=== PATIENT | female | born 1940 | race Caucasian/White ===

== ENCOUNTER 2016-08-09 15:56 | Emergency (ER) | payer OTHER, MEDICAID ==
[~2016-08-09] VITALS: Wt 65.5 kg
[~2016-08-09 15:56] MED LIST: ADV50050 INH; ALBU8.5H3 IH; ALBU8.5H5 INH; ATEN50TA PO; FLUO20CA22 PO; LEVO88TA36 PO; PRED20TA PO
[2016-08-09] MEDS ORDERED: ALBUTEROL 0.5% (NEB) 2.5 MG/0.5 ML AMP HHN STA (19:35)
[2016-08-09] MEDS ORDERED: IPRATROPIUM (NEB) 0.5 MG/2.5 ML AMP HHN ONE (20:00)
[2016-08-09 20:02] LABS: ADD UMIC YES; URINE BILIRUBIN (Dip) NEGATIVE (NEGATIVE); URINE BLOOD (Dip) TRACE (NEGATIVE); URINE COLOR LT. YELLOW (YELLOW); URINE GLUCOSE (Dip) NEGATIVE (NEGATIVE); URINE KETONES (Dip) NEGATIVE (NEGATIVE); URINE LEUKOCYTE ESTERASE (Dip) 2+ (NEGATIVE); URINE NITRITE (Dip) NEGATIVE (NEGATIVE); URINE TOTAL PROTEIN (Dip) NEGATIVE (NEGATIVE); URINE UROBILINOGEN (Dip) 0.2 E.U./dL (0.1-1.0)
[2016-08-09 20:06] LABS: BASOPHILS % 0.5 % (0.0-2.0); EOSINOPHILS # 0.4 10^3/ul (0.0-0.5); EOSINOPHILS % 5.2 % (0.0-7.0); HEMATOCRIT 40.7 % (37.0-47.0); HEMOGLOBIN 13.5 g/dl (12.0-16.0); LYMPHOCYTES # 2.1 10^3/ul (0.8-2.9); LYMPHOCYTES % 25.8 % (15.0-51.0); MEAN CORPUSCULAR HEMOGLOBIN 29.4 pg (29.0-33.0); MEAN CORPUSCULAR HGB CONC 33.1 g/dl (32.0-37.0); MEAN CORPUSCULAR VOLUME 88.8 fl (82.0-101.0); MEAN PLATELET VOLUME 7.8 fl (7.4-10.4); MONOCYTE # 0.7 10^3/ul (0.3-0.9); MONOCYTES % 8.8 % (0.0-11.0); NEUTROPHIL # 4.8 10^3/ul (1.6-7.5); NEUTROPHILS % 59.7 % (39.0-77.0); PLATELET COUNT 325 10^3/UL (140-440); RED BLOOD COUNT 4.58 10^6/ul (4.20-5.40); RED CELL DISTRIBUTION WIDTH 13.1 % (11.5-14.5)
[2016-08-09 20:07] LABS: CONDITION 1
[2016-08-09 20:11] LABS: INR 0.91; PROTIME 12.3 Sec (12.2-14.2)
[2016-08-09 20:12] LABS: PARTIAL THROMBOPLASTIN TIME 26.8 Sec (25.0-35.0)
[2016-08-09 20:15] LABS: POTASSIUM 4.4 mmol/L (3.5-5.1)
[2016-08-09 20:18] LABS: CALCIUM 9.3 mg/dl (8.4-10.2); CREATININE 0.89 mg/dl (0.44-1.00)
--- NOTE | 2016-08-09 20:19 | ERD ---
ER Documentation Chief Complaint Date/Time DATE: 08/09/16 TIME: 20:18 Chief Complaint COUGH, BACK PAIN, SENT PER PMD FOR POSSIBLE PNA PER FAMILY, NO SOB HPI 76-year-old female with a history of COPD was referred to the emergency department by primary care doctor for cough, back pain to rule out pneumonia. Patient states that she always feels short of breath secondary to her COPD, she has a 20 year history where she smokes about half a pack a day however she quit. She complains of pain in the anterior portion of her chest that goes to her left side upper back, nonradiating, described as achy and noted when she moves or takes a deep breath in or out. She denies fevers or chills. ROS All systems reviewed and are negative except as per history of present illness. Medications Home Meds Active Scripts Levofloxacin* (Levaquin*) 750 Mg Tablet, 750 MG PO DAILY for 5 Days, TAB Prov:ALIYAH BOSS PA-C 08/09/16 Prednisone* (Prednisone*) 20 Mg Tab, 40 MG PO DAILY for 4 Days, TAB Prov:SIENA ZAMORA MD 01/19/15 Albuterol Sulfate* (Albuterol Sulfate* HFA) 8.5 Gm Hfa.aer.ad, 1-2 PUFF INH Q4 Y for SHORTNESS OF BREATH, #1 EA Prov:SIENA ZAMORA MD 01/19/15 Reported Medications Salmeterol Xinaf-Fluticasone* (Advair*) 1 Inh Inha, 14 INH INH 10/13/13 Albuterol Sulfate* (Proair HFA*) 8.5 Gm Hfa.aer.ad, 8.5 GM IH 10/13/13 Atenolol* (Atenolol*) 50 Mg Tablet, 50 MG PO DAILY 10/13/13 Fluoxetine Hcl* (Fluoxetine Hcl*) 20 Mg Capsule, 20 MG PO DAILY 10/13/13 Levothyroxine Sodium (Levothroid) 88 Mcg Tablet, 88 MCG PO DAILY 10/13/13 Allergies Allergies: Coded Allergies: Cephalexin (Verified Allergy, RASH, 08/20/13) PMhx/Soc History of Surgery: Yes (hernia repair abdomen, cholystectomy) Anesthesia Reaction: No Hx Neurological Disorder: No Hx Respiratory Disorders: Yes (asthma, copd) Hx Cardiac Disorders: Yes (htn) Hx Psychiatric Problems: Yes (ANXIETY) Hx Miscellaneous Medical Probl: Yes (hypothyroidism, right shoulder DJD, hyoerlipidemia) Hx Alcohol Use: No Hx Substance Use: No Hx Tobacco Use: Yes Smoking Status: Former smoker Physical Exam Vitals Vital Signs Date Time Temp Pulse Resp B/P Pulse Ox O2 Delivery O2 Flow Rate FiO2 08/09/16 19:57 78 20 93 21 08/09/16 16:34 97.0 77 17 125/62 98 Physical Exam General: Well-developed, well-nourished. The patient appears in no acute distress. HEENT: Head is normocephalic, atraumatic. No scleral icterus. Pupils are equal , round, and reactive. Oral mucous membranes are moist. No pharyngeal erythema. Neck: Supple. Nontender. Lungs: Clear to auscultation. Normal air movement. Heart: Regular rate and rhythm. S1 and S2 are normal. No murmurs, gallops, or rubs. Abdomen: Soft, nontender, nondistended. Bowel sounds are normoactive. Extremities: No clubbing or cyanosis. Normal pulses. Moving extremities x 4. No weakness. No pedal edema. Neurologic: Alert and oriented 3. No focal deficits. Skin: Normal turgor. No rash or lesions. Result Diagram: 08/09/16195008/09/161950 Results 24 hrs Laboratory Tests Test 08/09/16 19:50 08/09/16 19:51 08/09/16 19:57 Urine Bacteria FEW Urine Bilirubin NEGATIVE Urine Clarity SL HAZY Urine Color LT. YELLOW Urine Glucose NEGATIVE% Urine Hemoglobin TRACE Urine Ketones NEGATIVE Urine Leukocyte Esterase 2+ Urine Microscopic RBC 0-2/HPF Urine Microscopic WBC 5-10/HPF Urine Nitrite NEGATIVE Urine Specific [place] >=1.030 Urine Squamous Epithelial Cells FEW Urine Total Protein NEGATIVE Urine Urobilinogen 0.2 E.U./dL Urine pH 6.0 Activated Partial Thromboplast Time 26.8Sec Anion Gap 17 B-Type Natriuretic Peptide 309PG/ML Basophils # 0.010^3/ul Basophils % 0.5% Blood Urea Nitrogen 23mg/dl Calcium Level 9.3mg/dl Carbon Dioxide Level 28mmol/L Chloride Level 104mmol/L Creatinine 0.89mg/dl Eosinophils # 0.410^3/ul Eosinophils % 5.2% Glucose Level 101mg/dl Hematocrit 40.7% Hemoglobin 13.5g/dl INR International Normalized Ratio 0.91 Lymphocytes # 2.110^3/ul Lymphocytes % 25.8% Mean Corpuscular Hemoglobin 29.4pg Mean Corpuscular Hemoglobin Concent 33.1g/dl Mean Corpuscular Volume 88.8fl Mean Platelet Volume 7.8fl Monocytes # 0.710^3/ul Monocytes % 8.8% Neutrophils # 4.810^3/ul Neutrophils % 59.7% Nucleated Red Blood Cells # 0.010^3/ul Nucleated Red Blood Cells % 0.0/100WBC Platelet Count 87387^3/UL Potassium Level 4.4mmol/L Prothrombin Time 12.3Sec Prothrombin Time Ratio 1.0 Red Blood Count 4.5810^6/ul Red Cell Distribution Width 13.1% Sodium Level 145mmol/L Troponin I 0.012ng/ml White Blood Count 8.010^3/ul Alanine Aminotransferase (ALT/SGPT) 27IU/L Aspartate Amino Transf (AST/SGOT) 46IU/L Lipase 198U/L Current Medications Medications (Trade) Dose Ordered Sig/Key Route PRN Reason Start Time Stop Time Status Last Admin Dose Admin Albuterol (Proventil 0.5% (Neb)) 5 mg ONCE STAT HHN 08/09/16 19:35 08/09/16 19:37 DC 08/09/16 19:56 Ipratropium [place] 0.5 mg 0.5 mg ONCE ONCE HHN 08/09/16 20:00 08/09/16 20:01 DC 08/09/16 19:56 Ceftriaxone Sodium (Rocephin) 50 ml @ 100 mls/hr ONCE ONCE IVPB 08/09/16 21:00 08/09/16 21:00 DC PROCEDURE: CR, chest CLINICAL INDICATION: Chest pain. TECHNIQUE: AP chest. COMPARISON: Chest, 01/11/2015. FINDINGS: The heart is not enlarged. There is calcified atherosclerosis of the aortic arch. There is no acute infiltrate in the lungs. No pleural effusion. IMPRESSION: 1. Unremarkable chest x-ray. 2. Calcified atherosclerosis of the aortic arch. RPTAT: GG .Jian Suazo MD, MD Date Time Electronically viewed and signed by .Jian Suazo MD, MD on 08/09/2016 20:46 PROCEDURE: CT abdomen and pelvis without intravenous contrast. CLINICAL INDICATION: Pain. TECHNIQUE: CT of the abdomen/pelvis was performed utilizing axial images with reconstructions in sagittal and coronal planes. The administered radiation dose is CTDI 11.1 mGy, DLP 573 mGy-cm. COMPARISON: No pertinent prior examinations were submitted for comparison. FINDINGS: Visualized Chest: Some atelectasis or scarring is noted within the lung bases. There is mild cardiomegaly. A small hiatal hernia is noted. Abdomen: The liver, spleen, pancreas, and adrenal glands are unremarkable. Prior cholecystectomy is noted. The kidneys are without hydronephrosis. No definite urinary calculi are seen. There is a 2.8 cm cyst within the left kidney. There is a small left inguinal hernia which contains a small loop of small bowel. There is no evidence of bowel obstruction. The appendix is not definitely seen. There is no evidence of acute appendicitis. No intra- abdominal free air is seen. There is no evidence of intra-abdominal adenopathy or free fluid. Vascular calcifications are noted within the aorta and its branches. Pelvis: The uterus is not definitely seen, likely resected. The urinary bladder is unremarkable. There is no pelvic adenopathy of free fluid. Osseous structures: There is grade 1 anterolisthesis of L5 on S1 due to facet arthritic changes. IMPRESSION: No acute findings. Small left inguinal hernia containing a loop of small bowel without evidence of bowel obstruction. Small hiatal hernia. RPTAT: HIKT .Julio Bertrand MD, Date Time Electronically viewed and signed by .Julio Bertrand MD, on 08/09/2016 22:33 .T/ Procedures/[facility] EKG: Reviewed by Dr. Hatfield Rate/Rhythm: Normal Sinus Rhythm rate of 83 QRS, ST, T-waves: No changes consistent w/ acute ischemia Impression: No evidence of ischemia or arrhythmia Labs, chest x-ray and urine were obtained. MDM: 76-year-old female with history of COPD complains of cough, chest pain as well as abdominal pain. Patient's workup is consistent with acute bronchitis, no evidence of pneumonia, fluid overload, hypoxia or respiratory distress. EKG shows no ischemic changes, troponin was negative and BNP was less than 500. Additionally, she was given a breathing treatment with albuterol and Atrovent reports to be significantly better at this time. Urinalysis was also obtained that showed 5-10 white blood cells, she will be given Levaquin to cover for urinary tract infection as well as acute bronchitis. Clinically she is stable, no signs of sepsis, hypoxia, respiratory distress. Suspicion for acute coronary syndrome, pulmonary embolus, dissection are low at this time. Patient's blood pressure was elevated (>120/80) but appears stable without evidence of hypertension emergency or urgency. The patient was counseled about the risks of hypertension and urged to pursue outpatient monitoring and therapy within a week with their primary care physician. The case was reviewed and discussed with Dr. Parrish who agrees with the plan of care including labs, treatment, and advanced imaging as appropriate. Departure Diagnosis: Primary Impression: UTI (urinary tract infection) Additional Impression: Acute bronchitis Condition: Good ALIYAH BOSS PA-C Aug 09, 2016 20:19
[2016-08-09 20:29] LABS: BACTERIA,URINE FEW; SQUAMOUS EPITHELIAL CELL,UR FEW; URINE RBCS 0-2 /HPF (0)
[2016-08-09 20:30] LABS: TROPONIN-I 0.012 ng/ml (0.00-0.12)
--- NOTE | 2016-08-09 20:46 | RADRPT ---
PROCEDURE: CR, chest CLINICAL INDICATION: Chest pain. TECHNIQUE: AP chest. COMPARISON: Chest, 01/11/2015. FINDINGS: The heart is not enlarged. There is calcified atherosclerosis of the aortic arch. There is no acut e infiltrate in the lungs. No pleural effusion. IMPRESSION: 1. Unremarkable chest x-ray. 2. Calcified atherosclerosis of the aortic arch. RPTAT: GG .Jian Suazo MD, MD Date Time Electronically viewed and signed by .Jian Suazo MD, on 08/09/2016 20:46 .Y/
[2016-08-09] MEDS ORDERED: CEFTRIAXONE 1 GM/50 ML (PMX) 50 ML IVPB ONE (21:00)
[2016-08-09 21:26] LABS: ALANINE AMINOTRANSFERASE 27 IU/L (13-69); ASPARTATE AMINO TRANSFERASE 46 IU/L (15-46)
--- NOTE | 2016-08-09 22:33 | RADRPT ---
PROCEDURE: CT abdomen and pelvis without intravenous contrast. CLINICAL INDICATION: Pain. TECHNIQUE: CT of the abdomen/pelvis was performed utilizing axial images with reconstructions in s agittal and coronal planes. The administered radiation dose is CTDI 11.1 mGy, DLP 573 mGy-cm. COMPARISON: No pertinent prior examinations were submitted for comparison. FINDINGS: Visualized Chest: Some atelectasis or scarring is noted within the lung bases. There is mild cardio megaly. A small hiatal hernia is noted. Abdomen: The liver, spleen, pancreas, and adrenal glands are unremarkable. Prior cholecystectomy is noted. The kidneys are without hydronephrosis. No definite urinary calculi are seen. There is a 2.8 cm cys t within the left kidney. There is a small left inguinal hernia which contains a small loop of small bowel. There is no evide nce of bowel obstruction. The appendix is not definitely seen. There is no evidence of acute appen dicitis. No intra-abdominal free air is seen. There is no evidence of intra-abdominal adenopathy or free fluid. Vascular calcifications are noted within the aorta and its branches. Pelvis: The uterus is not definitely seen, likely resected. The urinary bladder is unremarkable. There is no pelvic adenopathy of free fluid. Osseous structures: There is grade 1 anterolisthesis of L5 on S1 due to facet arthritic changes. IMPRESSION: No acute findings. Small left inguinal hernia containing a loop of small bowel without evidence of bowel obstruction. Small hiatal hernia. RPTAT: HIKT .Julio Bertrand MD, MD Date Time Electronically viewed and signed by .Julio Bertrand MD, on 08/09/2016 22:33 .T/
[2016-08-09] MEDS ORDERED: LEVO750T25 PO (22:42)
[2016-08-09 23:24] VITALS: BP 12/70; PULSE 66; RESP 18; TEMP 98
== END 2016-08-09 23:25 | disposition home or self-care (01) ==
LOC: FTE 15:56
DX: N39.0 Urinary tract infection, site not specified (principal); J20.9 Acute bronchitis, unspecified; J44.1 Chronic obstructive pulmonary disease with (acute) exacerbation; I10 Essential (primary) hypertension; E03.9 Hypothyroidism, unspecified; R07.89 Other chest pain; Z87.891 Personal history of nicotine dependence
CPT/HCPCS: 36415; 71010; 74176; 80048; 81001; 81003; 83690; 83880; 84450; 84460; 84484; 85025; 85610; 85730; 93005; 94664

== ENCOUNTER 2016-10-21 14:59 | Emergency (ER) | payer OTHER, MEDICAID ==
[~2016-10-21] VITALS: Wt 68.0 kg
[~2016-10-21 14:59] MED LIST changes: +LEVO750T25 PO
[2016-10-21] MEDS ORDERED: morphine 2 MG INJ IV STA (19:11)
[2016-10-21 19:32] LABS: ADD SCAN DIFF NO
[2016-10-21 19:35] LABS: BASOPHIL # 0.1 10^3/ul (0.0-0.1); BASOPHILS % 0.9 % (0.0-2.0); EOSINOPHILS # 0.3 10^3/ul (0.0-0.5); EOSINOPHILS % 3.5 % (0.0-7.0); HEMATOCRIT 41.8 % (37.0-47.0); HEMOGLOBIN 13.7 g/dl (12.0-16.0); LYMPHOCYTES # 2.4 10^3/ul (0.8-2.9); LYMPHOCYTES % 30.8 % (15.0-51.0); MEAN CORPUSCULAR HEMOGLOBIN 29.9 pg (29.0-33.0); MEAN CORPUSCULAR HGB CONC 32.8 g/dl (32.0-37.0); MEAN CORPUSCULAR VOLUME 91.3 fl (82.0-101.0); MEAN PLATELET VOLUME 9.3 fl (7.4-10.4); MONOCYTE # 0.8 10^3/ul (0.3-0.9); MONOCYTES % 10.2 % (0.0-11.0); NEUTROPHIL # 4.1 10^3/ul (1.6-7.5); NEUTROPHILS % 54.3 % (39.0-77.0); PLATELET COUNT 296 10^3/UL (140-415); RED BLOOD COUNT 4.58 10^6/ul (4.20-5.40); RED CELL DISTRIBUTION WIDTH 12.6 % (11.5-14.5); WHITE BLOOD COUNT 7.6 10^3/ul (4.8-10.8)
[2016-10-21 19:40] VITALS: BP 150/73; PULSE 68; RESP 15
[2016-10-21 19:41] LABS: ADD UMIC YES; URINE BILIRUBIN (Dip) NEGATIVE (NEGATIVE); URINE BLOOD (Dip) TRACE (NEGATIVE); URINE COLOR LT. YELLOW (YELLOW); URINE GLUCOSE (Dip) NEGATIVE (NEGATIVE); URINE KETONES (Dip) NEGATIVE (NEGATIVE); URINE LEUKOCYTE ESTERASE (Dip) TRACE (NEGATIVE); URINE NITRITE (Dip) NEGATIVE (NEGATIVE); URINE TOTAL PROTEIN (Dip) NEGATIVE (NEGATIVE); URINE UROBILINOGEN (Dip) 0.2 E.U./dL (0.1-1.0)
[2016-10-21 19:49] LABS: INR 0.96; PROTIME 12.8 Sec (12.2-14.2)
[2016-10-21 19:50] LABS: BACTERIA,URINE FEW; SQUAMOUS EPITHELIAL CELL,UR FEW
[2016-10-21 19:50] LABS: PARTIAL THROMBOPLASTIN TIME 27.3 Sec (25.0-35.0)
[2016-10-21 20:12] LABS: ALBUMIN 4.3 g/dl (3.3-4.9); CHLORIDE 105 mmol/L (97-110); SODIUM 143 mmol/L (135-144)
[2016-10-21 20:14] LABS: CREATININE 0.85 mg/dl (0.44-1.00)
[2016-10-21 20:15] LABS: ALANINE AMINOTRANSFERASE 38 IU/L (13-69); ALBUMIN/GLOBULIN RATIO 1.16; ALKALINE PHOSPHATASE 123 IU/L (42-121); ANION GAP 15 (8-16); ASPARTATE AMINO TRANSFERASE 30 IU/L (15-46); BILIRUBIN,INDIRECT 0.2 mg/dl (0-1.1); BILIRUBIN,TOTAL 0.2 mg/dl (0.2-1.3); BLOOD UREA NITROGEN 24 mg/dl (7-20); CARBON DIOXIDE 27 mmol/L (21-31); GLUCOSE 98 mg/dl (70-220)
[2016-10-21 20:16] LABS: CALCIUM 9.6 mg/dl (8.4-10.2)
[2016-10-21 20:31] LABS: TROPONIN-I < 0.012 ng/ml (0.00-0.12)
--- NOTE | 2016-10-21 20:36 | RADRPT ---
PROCEDURE: CT Abdomen and Pelvis without contrast. CLINICAL INDICATION: Abdominal and pelvic pain. TECHNIQUE: CT scan of the abdomen and pelvis without contrast was performed. Coronal and sagittal reformatted images were obtained from the axial source images. Images were reviewed on a high-resolu [employer] PACS workstation. Total exam DLP is 548.84 mGy-cm. CTDIvol is 10.67 mGy. One or more of the f ollowing dose reduction techniques were used: Automated exposure control, adjustment of the mA and/o r kV according to patient size, use of iterative reconstruction technique. COMPARISON: CT scan of the abdomen and pelvis dated 08/09/2016 which demonstrated a small left ing uinal hernia containing a loop of small bowel without evidence of obstruction and a small hiatus her cristiano. FINDINGS: There is mild scarring or atelectasis at the lung bases. The lung bases are otherwise normal. The heart size is normal. There is no pleural effusion or pericardial effusion. The liver is normal in size and attenuation. There is no focal hepatic lesion. The gallbladder is surgically absent with clips noted in the gallbladder bed. The bile ducts are no rmal. The spleen is normal in size. There is no focal splenic lesion. Both adrenals are normal with no enlargement or mass. The pancreas is unremarkable with no mass or evidence of pancreatitis. There is no solid renal mass, hydronephrosis, or calculus. There is a benign cyst in the mid left k idney laterally measuring 2.8 cm, unchanged. The abdominal aorta is not dilated. Vascular calcifications are present consistent with atheroscler osis. There is no retroperitoneal lymphadenopathy or mass. There is no pelvic lymphadenopathy or mass. The bladder and distal ureters are normal. The appendix is well seen and appears normal. There is a small hiatus hernia, unchanged. A small left inguinal hernia containing small bowel with out evidence of obstruction is also unchanged. There is no free fluid or free gas. There are degenerative changes of the spine. There is grade 1 anterolisthesis at L5-S1, unchanged. There is no other fracture or lytic lesion. IMPRESSION: 1. Mild scarring or atelectasis at the lung bases. 2. Status post cholecystectomy. 3. Benign left renal cyst. 4. Atherosclerosis. 5. Normal appendix. 6. Small hiatus hernia, unchanged. 7. Small left inguinal hernia containing small bowel without evidence of obstruction, unchanged. 8. Degenerative changes of the spine. 9. Grade 1 anterolisthesis at L5-S1, unchanged. RPTAT: QQ .Alfa Gamino MD, Date Time Electronically viewed and signed by .Alfa Gamino MD, on 10/21/2016 20:35 .R/
[2016-10-21] MEDS ORDERED: ATEN-51 PO (21:05)
[2016-10-21] MEDS ORDERED: FLUT16SP17 NASAL (21:05)
[2016-10-21] MEDS ORDERED: ADV25050 INHALATION (21:06)
[2016-10-21] MEDS ORDERED: LEVO75TA5 PO (21:06)
[2016-10-21] MEDS ORDERED: CIPR500T4 PO (21:07)
[2016-10-21] MEDS ORDERED: SIMV20TA PO (21:08)
[2016-10-21] MEDS ORDERED: MONT10TA24 PO (21:08)
[2016-10-21] MEDS ORDERED: OMEP20CA16 PO ×2 (21:09→21:11)
[2016-10-21] MEDS ORDERED: HYOS0.1212 SL (21:12)
[2016-10-21] MEDS ORDERED: ASPI-664 PO (21:12)
--- NOTE | 2016-10-21 21:31 | ERD ---
ER Documentation Chief Complaint Date/Time DATE: 10/21/16 TIME: 21:29 Chief Complaint left side abd pain for the past few days. no n/v/d. no cp or sob/sent by HPI 76-year-old female with a history of COPD, hypertension, hypothyroidism, asthma presenting to the ER for left upper quadrant pain. She states that her pain is intermittent, on the left side of her abdomen, aching and pressure-like, currently she does not have pain. She has no associated nausea, vomiting, constipation, diarrhea, or dysuria. She has had this pain for several months. She went to see her primary care doctor today who sent her here to the ER for evaluation. She does not state that her pain is any worse than usual. She denies any melena or hematochezia. ROS All systems reviewed and are negative except as per history of present illness. Medications Home Meds Active Scripts Albuterol Sulfate* (Albuterol Sulfate* HFA) 8.5 Gm Hfa.aer.ad, 1-2 PUFF INH Q4 Y for SHORTNESS OF BREATH, #1 EA Prov:SIENA ZAMORA MD 01/19/15 Reported Medications Aspirin* (Aspirin* EC) 81 Mg Tablet.dr, 81 MG PO DAILY, TAB 10/21/16 Hyoscyamine Sulfate* (Hyoscyamine Sulfate*) 0.125 Mg Tab.subl, 0.125 MG SL DAILY , TAB 10/21/16 Omeprazole* (Omeprazole*) 20 Mg Capsule.dr, 20 MG PO DAILY, #30 CAP 10/21/16 Omeprazole* (Omeprazole*) 20 Mg Capsule.dr, 20 MG PO DAILY, #30 CAP 10/21/16 Simvastatin* (Zocor*) 20 Mg Tablet, 20 MG PO QHS, #30 TAB 10/21/16 Montelukast Sodium* (Montelukast Sodium*) 10 Mg Tablet, 10 MG PO QHS, #30 TAB 10/21/16 Ciprofloxacin Hcl* (Ciprofloxacin Hcl*) 500 Mg Tablet, 500 MG PO BID, #14 TAB 10/21/16 Salmeterol Xinaf/Fluticasone* (Advair*) 250-50 Diskus Inhaler, 1 INH INHALATION BID, #1 INHALER 10/21/16 Levothyroxine Sodium* (Levothyroxine Sodium*) 75 Mcg Tablet, 75 MCG PO BEFORE BREAKFAST, #30 TAB 10/21/16 Atenolol* (Atenolol*) 25 Mg Tablet, 25 MG PO BID, #60 TAB 10/21/16 Fluticasone Propionate* (Fluticasone Propionate* Nasal) 50 Mcg/Arnot - 16 Gm Ar[place].susp, 1 SPRAY NASAL DAILY, #1 BOTTLE TO EACH NOSTRIL 10/21/16 Fluoxetine Hcl* (Fluoxetine Hcl*) 20 Mg Capsule, 20 MG PO DAILY 10/13/13 Discontinued Reported Medications Salmeterol Xinaf-Fluticasone* (Advair*) 1 Inh Inha, 14 INH INH 10/13/13 Albuterol Sulfate* (Proair HFA*) 8.5 Gm Hfa.aer.ad, 8.5 GM IH 10/13/13 Atenolol* (Atenolol*) 50 Mg Tablet, 50 MG PO DAILY 10/13/13 Levothyroxine Sodium (Levothroid) 88 Mcg Tablet, 88 MCG PO DAILY 10/13/13 Discontinued Scripts Levofloxacin* (Levaquin*) 750 Mg Tablet, 750 MG PO DAILY for 5 Days, TAB Prov:ALIYAH BOSS PA-C 08/09/16 Prednisone* (Prednisone*) 20 Mg Tab, 40 MG PO DAILY for 4 Days, TAB Prov:SIENA ZAMORA MD 01/19/15 Allergies Allergies: Coded Allergies: cephalexin (Verified Allergy, Unknown, RASH, 10/21/16) PMhx/Soc History of Surgery: Yes (hernia repair abdomen, cholystectomy) Anesthesia Reaction: No Hx Neurological Disorder: No Hx Respiratory Disorders: Yes (asthma, copd) Hx Cardiac Disorders: Yes (htn) Hx Psychiatric Problems: Yes (ANXIETY) Hx Miscellaneous Medical Probl: Yes (hypothyroidism, right shoulder DJD, hyoerlipidemia) Hx Alcohol Use: No Hx Substance Use: No Hx Tobacco Use: Yes Smoking Status: Current every day smoker FmHx Family History: No diabetes Physical Exam Vitals Vital Signs Date Time Temp Pulse Resp B/P Pulse Ox O2 Delivery O2 Flow Rate FiO2 10/21/16 19:40 68 15 150/73 98 Room Air 10/21/16 15:07 98.8 82 21 142/64 96 Physical Exam Const: Well-appearing, no distress, well-nourished Head: Atraumatic Eyes: Normal Conjunctiva ENT: Normal External Ears, Nose and Mouth. Neck: Full range of motion..~ No meningismus. Resp: Clear to auscultation bilaterally Cardio: Regular rate and rhythm, no murmurs Abd: Soft, non tender, non distended. No rebound or guarding. No masses normal bowel sounds Skin: No petechiae or rashes Back: No midline or flank tenderness Ext: No cyanosis, or edema Neur: Awake and alert Psych: Normal Mood and Affect Result Diagram: 10/21/16191910/21/161919 Results 24 hrs Laboratory Tests Test 10/21/16 19:20 10/21/16 19:30 White Blood Count 7.610^3/ul Red Blood Count 4.5810^6/ul Hemoglobin 13.7g/dl Hematocrit 41.8% Mean Corpuscular Volume 91.3fl Mean Corpuscular Hemoglobin 29.9pg Mean Corpuscular Hemoglobin Concent 32.8g/dl Red Cell Distribution Width 12.6% Platelet Count 36252^3/UL Mean Platelet Volume 9.3fl Neutrophils % 54.3% Lymphocytes % 30.8% Monocytes % 10.2% Eosinophils % 3.5% Basophils % 0.9% Nucleated Red Blood Cells % 0.0/100WBC Neutrophils # 4.110^3/ul Lymphocytes # 2.410^3/ul Monocytes # 0.810^3/ul Eosinophils # 0.310^3/ul Basophils # 0.110^3/ul Nucleated Red Blood Cells # 0.010^3/ul Prothrombin Time 12.8Sec Prothrombin Time Ratio 1.0 INR International Normalized Ratio 0.96 Activated Partial Thromboplast Time 27.3Sec Sodium Level 143mmol/L Potassium Level 4.0mmol/L Chloride Level 105mmol/L Carbon Dioxide Level 27mmol/L Anion Gap 15 Blood Urea Nitrogen 24mg/dl Creatinine 0.85mg/dl Glucose Level 98mg/dl Calcium Level 9.6mg/dl Total Bilirubin 0.2mg/dl Direct Bilirubin 0.00mg/dl Indirect Bilirubin 0.2mg/dl Aspartate Amino Transf (AST/SGOT) 30IU/L Alanine Aminotransferase (ALT/SGPT) 38IU/L Alkaline Phosphatase 123IU/L Troponin I < 0.012ng/ml Total Protein 8.0g/dl Albumin 4.3g/dl Globulin 3.70g/dl Albumin/Globulin Ratio 1.16 Lipase 240U/L Urine Color LT. YELLOW Urine Clarity CLEAR Urine pH 5.5 Urine Specific [place] 1.010 Urine Ketones NEGATIVE Urine Nitrite NEGATIVE Urine Bilirubin NEGATIVE Urine Urobilinogen 0.2 E.U./dL Urine Leukocyte Esterase TRACE Urine Microscopic RBC 2-5/HPF Urine Microscopic WBC 2-5/HPF Urine Squamous Epithelial Cells FEW Urine Bacteria FEW Urine Hemoglobin TRACE Urine Glucose NEGATIVE% Urine Total Protein NEGATIVE Current Medications Medications (Trade) Dose Ordered Sig/Key Route PRN Reason Start Time Stop Time Status Last Admin Dose Admin Morphine Sulfate (morphine) 2 mg ONCE STAT IV 10/21/16 19:11 10/21/16 19:13 DC 10/21/16 19:48 Procedures/MDM EMERGENT LABS AND DIAGNOSTIC STUDIES: Lab Results above were reviewed and interpreted by me. No significant abnormalities on CBC, CMP, lipase 12-lead EKG was interpreted by Zac Barnett MD: Normal Sinus Rhythm with ventricular rate of 69 beats per minute Normal axis Normal intervals No acute ST or T wave changes suggestive of acute ischemia or STEMI. Radiology Results as interpreted by Radiology below were reviewed by Colin Barnett MD: CT abdomen and pelvis: IMPRESSION: 1. Mild scarring or atelectasis at the lung bases. 2. Status post cholecystectomy. 3. Benign left renal cyst. 4. Atherosclerosis. 5. Normal appendix. 6. Small hiatus hernia, unchanged. 7. Small left inguinal hernia containing small bowel without evidence of obstruction, unchanged. 8. Degenerative changes of the spine. 9. Grade 1 anterolisthesis at L5-S1, unchanged. RPTAT: QQ .Alfa Gamino MD, MD Date Time Electronically viewed and signed by .Alfa Gamino MD, on 10/21/2016 20:35 Initial Nursing notes reviewed. Previous Medical Records requested via the Electronic Health Record. EMERGENCY DEPARTMENT COURSE / MEDICAL DECISION MAKING: Patient was sent here from her physician's office for left upper quadrant pain of unknown etiology. It seems like the pain has been chronic for the past 2 months. She is hemodynamically stable and afebrile. My exam is not consistent with acute surgical abdomen. However given the patient's age, a CT scan was ordered and did not show any acute abnormalities. A hiatal hernia was noted that has been previously noted on her scans and has not changed significantly. There were other chronic changes but nothing acute. Her labs are all within normal limits and she has no evidence of UTI. I believe the patient is stable for discharge for further continued outpatient follow-up with her primary care doctor and referral to wet process miller head assistant as her pain may be associated with the hiatal hernia. I do not suspect ischemic bowel or aortic dissection. Return precautions were discussed. Patient was discharged with a copy of her results. Patient's blood pressure was elevated (>120/80) but appears stable without evidence of hypertensive emergency or urgency. The patient was counseled about the risks of hypertension and urged to pursue outpatient monitoring and therapy within a week with their primary care physician. Departure Diagnosis: Primary Impression: Abdominal pain Abdominal location: left upper quadrant Qualified Code: R10.12 - Left upper quadrant pain Additional Impression: Hiatal hernia Condition: Stable Patient Instructions: Abdominal Pain, What Is a Hiatal Hernia? Additional Instructions: Follow-up with your primary care doctor for a referral to a wet process miller head assistant. JOANNE BARNETT MD Oct 21, 2016 21:30
== END 2016-10-21 21:55 | disposition home or self-care (01) ==
LOC: E/R 14:59
DX: R10.12 Left upper quadrant pain (principal); K44.9 Diaphragmatic hernia without obstruction or gangrene; I10 Essential (primary) hypertension; J44.9 Chronic obstructive pulmonary disease, unspecified; E03.9 Hypothyroidism, unspecified; F17.210 Nicotine dependence, cigarettes, uncomplicated; Z79.82 Long term (current) use of aspirin
CPT/HCPCS: 74176; 80053; 81001; 81003; 83690; 84484; 85025; 85610; 85730; 93005; J2270; 36415; 96374

== ENCOUNTER 2016-11-20 08:33 | Emergency (ER) | payer OTHER, MEDICAID ==
[~2016-11-20] VITALS: Wt 67.5 kg
[~2016-11-20 08:33] MED LIST changes: +ADV25050 INHALATION; -ADV50050 INH; -ALBU8.5H3 IH; +ASPI-664 PO; +ATEN-51 PO; -ATEN50TA PO; +CIPR500T4 PO; +FLUT16SP17 NASAL; +HYOS0.1212 SL; -LEVO750T25 PO; +LEVO75TA5 PO; -LEVO88TA36 PO; +MONT10TA24 PO; +OMEP20CA16 PO; -PRED20TA PO; +SIMV20TA PO
--- NOTE | 2016-11-20 09:56 | ERD ---
ER Documentation Chief Complaint Date/Time DATE: 11/20/16 TIME: 09:53 Chief Complaint DIZZY/ANXIETY/INSOMNIA SINCE YESERDAY HPI Patient is a 76-year-old female who presents with gradual onset, constant, mild lightheadedness associated with generalized malaise and fatigue for 2 days. She reports a history of depression states that for the last 2 days she has felt increasingly depressed. She denies suicidal ideation, denies auditory hallucination, denies homicidal ideation. Patient denies chest pain, abdominal pain, nausea or vomiting, fever, headache, focal weakness. Patient cannot identify exacerbating or precipitating factor. Patient takes fluoxetine for depression. ROS All systems reviewed and are negative except as per history of present illness. Medications Home Meds Active Scripts Albuterol Sulfate* (Albuterol Sulfate* HFA) 8.5 Gm Hfa.aer.ad, 1-2 PUFF INH Q4 Y for SHORTNESS OF BREATH, #1 EA Prov:SIENA ZAMORA MD 01/19/15 Reported Medications Aspirin* (Aspirin* EC) 81 Mg Tablet.dr, 81 MG PO DAILY, TAB 10/21/16 Hyoscyamine Sulfate* (Hyoscyamine Sulfate*) 0.125 Mg Tab.subl, 0.125 MG SL DAILY , TAB 10/21/16 Omeprazole* (Omeprazole*) 20 Mg Capsule.dr, 20 MG PO DAILY, #30 CAP 10/21/16 Omeprazole* (Omeprazole*) 20 Mg Capsule.dr, 20 MG PO DAILY, #30 CAP 10/21/16 Simvastatin* (Zocor*) 20 Mg Tablet, 20 MG PO QHS, #30 TAB 10/21/16 Montelukast Sodium* (Montelukast Sodium*) 10 Mg Tablet, 10 MG PO QHS, #30 TAB 10/21/16 Ciprofloxacin Hcl* (Ciprofloxacin Hcl*) 500 Mg Tablet, 500 MG PO BID, #14 TAB 10/21/16 Salmeterol Xinaf/Fluticasone* (Advair*) 250-50 Diskus Inhaler, 1 INH INHALATION BID, #1 INHALER 10/21/16 Levothyroxine Sodium* (Levothyroxine Sodium*) 75 Mcg Tablet, 75 MCG PO BEFORE BREAKFAST, #30 TAB 10/21/16 Atenolol* (Atenolol*) 25 Mg Tablet, 25 MG PO BID, #60 TAB 10/21/16 Fluticasone Propionate* (Fluticasone Propionate* Nasal) 50 Mcg/Friendship - 16 Gm Friendship.susp, 1 SPRAY NASAL DAILY, #1 BOTTLE TO EACH NOSTRIL 10/21/16 Fluoxetine Hcl* (Fluoxetine Hcl*) 20 Mg Capsule, 20 MG PO DAILY 10/13/13 Allergies Allergies: Coded Allergies: cephalexin (Verified Allergy, Unknown, RASH, 11/20/16) PMhx/Soc Past medical history: Asthma, hypothyroidism Past surgical history: Denies Social history: Denies tobacco or alcohol. History of Surgery: Yes (hernia repair abdomen, cholystectomy) Anesthesia Reaction: No Hx Neurological Disorder: No Hx Respiratory Disorders: Yes (asthma, copd) Hx Cardiac Disorders: Yes (htn) Hx Psychiatric Problems: Yes (ANXIETY) Hx Miscellaneous Medical Probl: Yes (hypothyroidism, right shoulder DJD, hyoerlipidemia) Hx Alcohol Use: No Hx Substance Use: No Hx Tobacco Use: Yes Smoking Status: Former smoker FmHx Family History: No coronary disease, No diabetes Physical Exam Vitals Vital Signs Date Time Temp Pulse Resp B/P Pulse Ox O2 Delivery O2 Flow Rate FiO2 11/20/16 08:35 98.0 84 18 143/89 95 Physical Exam Const: Patient is crying during exam, appears depressed Head: Atraumatic Eyes: Normal Conjunctiva, no pallor, no icterus ENT: Normal External Ears, Nose and Mouth. Mucous membranes moist Neck: Full range of motion. No JVD. No meningismus. Resp: Clear to auscultation bilaterally, no wheezes, no rales Cardio: Regular rate and rhythm, no murmurs Abd: Soft, non tender, non distended. Normal bowel sounds Skin: No petechiae or rashes Back: No midline or flank tenderness Ext: No cyanosis, or edema Neur: Awake and alert, cranial nerves II through XII intact bilaterally, strength and sensation intact in 4 extremities, no pronator drift Psych: Depressed mood and Affect Result Diagram: 11/20/16 1000 11/20/16 1000 Results 24 hrs Laboratory Tests Test 11/20/16 10:00 White Blood Count 11.010^3/ul Red Blood Count 4.5110^6/ul Hemoglobin 13.2g/dl Hematocrit 41.5% Mean Corpuscular Volume 92.0fl Mean Corpuscular Hemoglobin 29.3pg Mean Corpuscular Hemoglobin Concent 31.8g/dl Red Cell Distribution Width 12.8% Platelet Count 75360^3/UL Mean Platelet Volume 9.7fl Neutrophils % 74.4% Lymphocytes % 14.9% Monocytes % 8.4% Eosinophils % 1.4% Basophils % 0.5% Nucleated Red Blood Cells % 0.0/100WBC Neutrophils # 8.210^3/ul Lymphocytes # 1.610^3/ul Monocytes # 0.910^3/ul Eosinophils # 0.210^3/ul Basophils # 0.110^3/ul Nucleated Red Blood Cells # 0.010^3/ul Urine Color LT. YELLOW Urine Clarity CLEAR Urine pH 5.5 Urine Specific [place] 1.025 Urine Ketones NEGATIVE Urine Nitrite NEGATIVE Urine Bilirubin NEGATIVE Urine Urobilinogen 0.2 E.U./dL Urine Leukocyte Esterase NEGATIVE Urine Hemoglobin NEGATIVE Urine Glucose NEGATIVE% Urine Total Protein NEGATIVE Sodium Level 139mmol/L Potassium Level 4.5mmol/L Chloride Level 99mmol/L Carbon Dioxide Level 29mmol/L Anion Gap 16 Blood Urea Nitrogen 21mg/dl Creatinine 0.82mg/dl Glucose Level 109mg/dl Calcium Level 9.3mg/dl Troponin I < 0.012ng/ml Procedures/MDM EKG read by me: Time 837, rate 84 Rhythm: Normal sinus Premier: Normal Intervals: Normal ST-T waves: no ischemic changes Ectopy: No Q-waves: No Impression: No evidence of ischemia or arrhythmia MDM: Patient is a 76-year-old female who presents with lightheadedness and generalized weakness in the setting of worsening depression. The patient denies suicidality. She is already on an antidepressant. Her EKG and labs are unremarkable. There are no associated symptoms such as chest pain or shortness of breath, no infectious symptoms, no focal neurologic symptoms or deficits. Patient has a slightly elevated BUN but no other signs to suggest dehydration. Patient can be safely discharged home with close PMD follow-up. I advised follow-up with a psychiatrist as well given worsening depression. I do believe that her depression is the underlying cause of her somatic symptoms. Departure Diagnosis: Primary Impression: Depression Additional Impression: Dizziness Condition: ELOINA Cruz MD Nov 20, 2016 09:56
--- NOTE | 2016-11-20 10:33 | RADRPT ---
PROCEDURE: XR 1 view Chest. CLINICAL INDICATION: Dizziness. TECHNIQUE: Portable Single frontal view of the chest was obtained. COMPARISON: August 09, 2016. FINDINGS: The heart is normal in size. There are mild aortic calcifications. There is no focal consolidation. There is minimal left base atelectasis/scarring. There is no pleural effusion. No pneumothorax is identified. The osseous structures are intact. IMPRESSION: No significant change. Minimal left base atelectasis/scarring. No evidence for acute cardiopulmonary disease. Aortic calcifications. Further findings as detailed above. RPTAT: PP .Bronson Le MD, Date Time Electronically viewed and signed by .Bronson Le MD, on 11/20/2016 10:32 .F/
[2016-11-20 10:38] LABS: ADD SCAN DIFF NO
[2016-11-20 10:44] LABS: ADD UMIC NO; URINE BILIRUBIN (Dip) NEGATIVE (NEGATIVE); URINE BLOOD (Dip) NEGATIVE (NEGATIVE); URINE COLOR LT. YELLOW (YELLOW); URINE GLUCOSE (Dip) NEGATIVE (NEGATIVE); URINE KETONES (Dip) NEGATIVE (NEGATIVE); URINE LEUKOCYTE ESTERASE (Dip) NEGATIVE (NEGATIVE); URINE NITRITE (Dip) NEGATIVE (NEGATIVE); URINE TOTAL PROTEIN (Dip) NEGATIVE (NEGATIVE); URINE UROBILINOGEN (Dip) 0.2 E.U./dL (0.1-1.0)
[2016-11-20 10:45] LABS: BASOPHIL # 0.1 10^3/ul (0.0-0.1); BASOPHILS % 0.5 % (0.0-2.0); EOSINOPHILS # 0.2 10^3/ul (0.0-0.5); EOSINOPHILS % 1.4 % (0.0-7.0); HEMATOCRIT 41.5 % (37.0-47.0); HEMOGLOBIN 13.2 g/dl (12.0-16.0); LYMPHOCYTES # 1.6 10^3/ul (0.8-2.9); LYMPHOCYTES % 14.9 % (15.0-51.0); MEAN CORPUSCULAR HEMOGLOBIN 29.3 pg (29.0-33.0); MEAN CORPUSCULAR HGB CONC 31.8 g/dl (32.0-37.0); MEAN PLATELET VOLUME 9.7 fl (7.4-10.4); MONOCYTE # 0.9 10^3/ul (0.3-0.9); MONOCYTES % 8.4 % (0.0-11.0); NEUTROPHIL # 8.2 10^3/ul (1.6-7.5); NEUTROPHILS % 74.4 % (39.0-77.0); PLATELET COUNT 248 10^3/UL (140-415); RED BLOOD COUNT 4.51 10^6/ul (4.20-5.40); RED CELL DISTRIBUTION WIDTH 12.8 % (11.5-14.5)
[2016-11-20 10:53] LABS: CHLORIDE 99 mmol/L (97-110); SODIUM 139 mmol/L (135-144)
[2016-11-20 10:54] LABS: POTASSIUM 4.5 mmol/L (3.5-5.1)
[2016-11-20 10:56] LABS: CREATININE 0.82 mg/dl (0.44-1.00)
[2016-11-20 10:57] LABS: ANION GAP 16 (8-16); BLOOD UREA NITROGEN 21 mg/dl (7-20); CALCIUM 9.3 mg/dl (8.4-10.2); CARBON DIOXIDE 29 mmol/L (21-31); GLUCOSE 109 mg/dl (70-220)
[2016-11-20 11:11] LABS: TROPONIN-I < 0.012 ng/ml (0.00-0.12)
[2016-11-20 11:43] VITALS: BP 148/78; PULSE 80; RESP 18; TEMP 98
== END 2016-11-20 11:49 | disposition home or self-care (01) ==
LOC: E/R 08:33
DX: F32.9 Major depressive disorder, single episode, unspecified (principal); I10 Essential (primary) hypertension; R40.2142 Coma scale, eyes open, spontaneous, at arrival to emergency department; R40.2362 Coma scale, best motor response, obeys commands, at arrival to emergency department; R40.2252 Coma scale, best verbal response, oriented, at arrival to emergency department; J44.9 Chronic obstructive pulmonary disease, unspecified; E03.9 Hypothyroidism, unspecified; Z87.891 Personal history of nicotine dependence; Z79.82 Long term (current) use of aspirin
CPT/HCPCS: 71010; 80048; 81003; 84484; 85025; 93005

== ENCOUNTER 2017-04-28 15:31 | Inpatient (IN) | payer OTHER, MEDICAID ==
[~2017-04-28] VITALS: Ht 154.9 cm; Wt 65.3 kg
[~2017-04-28 15:31] MED LIST changes: -CIPR500T4 PO; -HYOS0.1212 SL; +HYOS0.1297 SL
[2017-04-28] MEDS ORDERED: PANTOPRAZOLE 40 MG INJ IV STA (15:51)
[2017-04-28] MEDS ORDERED: BACL10TA PO (16:20)
[2017-04-28] MEDS ORDERED: CIPR500T4 PO (16:20)
[2017-04-28] MEDS ORDERED: LORA10TA3 PO (16:21)
[2017-04-28] MEDS ORDERED: DICL50TA2 PO (16:21)
[2017-04-28 16:22] LABS: BASOPHIL # 0.1 10^3/ul (0.0-0.1); EOSINOPHILS # 0.2 10^3/ul (0.0-0.5); EOSINOPHILS % 2.7 % (0.0-7.0); HEMATOCRIT 38.7 % (37.0-47.0); HEMOGLOBIN 12.6 g/dl (12.0-16.0); LYMPHOCYTES # 2.2 10^3/ul (0.8-2.9); LYMPHOCYTES % 32.2 % (15.0-51.0); MEAN CORPUSCULAR HEMOGLOBIN 29.2 pg (29.0-33.0); MEAN CORPUSCULAR HGB CONC 32.6 g/dl (32.0-37.0); MEAN CORPUSCULAR VOLUME 89.8 fl (82.0-101.0); MEAN PLATELET VOLUME 9.6 fl (7.4-10.4); MONOCYTE # 0.6 10^3/ul (0.3-0.9); MONOCYTES % 9.2 % (0.0-11.0); NEUTROPHIL # 3.8 10^3/ul (1.6-7.5); NEUTROPHILS % 54.5 % (39.0-77.0); PLATELET COUNT 280 10^3/UL (140-415); RED BLOOD COUNT 4.31 10^6/ul (4.20-5.40); WHITE BLOOD COUNT 6.9 10^3/ul (4.8-10.8)
[2017-04-28] MEDS ORDERED: TRAM-40 PO (16:22)
[2017-04-28] MEDS ORDERED: GABA-526 PO (16:23)
[2017-04-28] MEDS ORDERED: FLUO10CA17 PO (16:24)
[2017-04-28 16:38] LABS: INR 1.07; PARTIAL THROMBOPLASTIN TIME 29.8 Sec (25.0-35.0); PROTIME 13.9 Sec (12.2-14.2); PT RATIO 1.1
[2017-04-28 16:40] LABS: ALANINE AMINOTRANSFERASE 38 IU/L (13-69); ALBUMIN 4.1 g/dl (3.3-4.9); ALKALINE PHOSPHATASE 95 IU/L (42-121); ANION GAP 13 (8-16); ASPARTATE AMINO TRANSFERASE 32 IU/L (15-46); BILIRUBIN,INDIRECT 0.5 mg/dl (0-1.1); BILIRUBIN,TOTAL 0.5 mg/dl (0.2-1.3); BLOOD UREA NITROGEN 19 mg/dl (7-20); CALCIUM 9.4 mg/dl (8.4-10.2); CARBON DIOXIDE 25 mmol/L (21-31); CHLORIDE 108 mmol/L (97-110); CREATININE 0.92 mg/dl (0.44-1.00); GLUCOSE 86 mg/dl (70-220); SODIUM 142 mmol/L (135-144); TOTAL PROTEIN 7.5 g/dl (6.1-8.1)
[2017-04-28 16:54] LABS: TROPONIN-I < 0.012 ng/ml (0.00-0.12)
[2017-04-28] MEDS ORDERED: MAGNESIUM CITRATE 300 ML BTL PO ONE (17:30)
[2017-04-28] MEDS ORDERED: ACETAMINOPHEN 325 MG TAB PO PRN ×2 (18:00→20:30)
[2017-04-28] MEDS ORDERED: ONDANSETRON 4 MG INJ IV PRN ×2 (18:00→20:30)
[2017-04-28] MEDS ORDERED: POLYETHYLENE GLYCOL 3350 119 GM POWDER PO ONE (18:30)
--- NOTE | 2017-04-28 19:10 | ERA ---
ER Documentation Chief Complaint Date/Time DATE: 04/28/17 TIME: 19:10 Chief Complaint rectal bleeding x 1 day HPI Patient is a 77-year-old female with asthma and hypertension who presents with a rectal bleed. The patient started yesterday with bleeding and she is having blood with flatus and with bowel movements. She denies pain. She says that she has never had this before. She was seen by Dr. Kline who saw her in the office and saw active bleeding and sent her to the ER for evaluation and likely admission. She does admit the chest pain yesterday but none today. She says that she had a colonoscopy 2 years ago but does not know the result. She takes 81 mg of aspirin daily. Her primary doctor is Dr. Millard. Upon review of old medical records this is the patient's 10th visit to the ER since 2010. ROS All systems reviewed and are negative except as per history of present illness. Medications Home Meds Reported Medications Fluoxetine Hcl* (Fluoxetine Hcl*) 10 Mg Capsule, 10 MG PO DAILY, CAP [id number] FOR 5 DAYS-DAILY AND THEN 20MG DAILY 04/28/17 Gabapentin* (Gabapentin*) 600 Mg Tablet, 600 MG PO TID, #90 TAB 04/28/17 Tramadol Hcl* (Ultram*) 50 Mg Tablet, 50 MG PO Q6H Y for PAIN, TAB 04/28/17 Diclofenac Potassium (Diclofenac Potassium) 50 Mg Tablet, 50 MG PO BID, TAB 04/28/17 Loratadine* (Loratadine*) 10 Mg Tablet, 10 MG PO DAILY, #30 TAB 04/28/17 Ciprofloxacin Hcl* (Ciprofloxacin Hcl*) 500 Mg Tablet, 500 MG PO BID, #14 TAB 04/28/17 Baclofen* (Baclofen*) 10 Mg Tablet, 10 MG PO BID, TAB 04/28/17 Simvastatin* (Zocor*) 20 Mg Tablet, 20 MG PO QHS, #30 TAB 10/21/16 Montelukast Sodium* (Montelukast Sodium*) 10 Mg Tablet, 10 MG PO QHS, #30 TAB 10/21/16 Levothyroxine Sodium* (Levothyroxine Sodium*) 75 Mcg Tablet, 75 MCG PO BEFORE BREAKFAST, #30 TAB 10/21/16 Atenolol* (Atenolol*) 25 Mg Tablet, 25 MG PO BID, #60 TAB 10/21/16 Discontinued Reported Medications Aspirin* (Aspirin* EC) 81 Mg Tablet.dr, 81 MG PO DAILY, TAB 10/21/16 Hyoscyamine Sulfate* (Hyoscyamine Sulfate*) 0.125 Mg Tab.subl, 0.125 MG SL DAILY , TAB 10/21/16 Omeprazole* (Omeprazole*) 20 Mg Capsule.dr, 20 MG PO DAILY, #30 CAP 10/21/16 Omeprazole* (Omeprazole*) 20 Mg Capsule.dr, 20 MG PO DAILY, #30 CAP 10/21/16 Salmeterol Xinaf/Fluticasone* (Advair*) 250-50 Diskus Inhaler, 1 INH INHALATION BID, #1 INHALER 10/21/16 Fluticasone Propionate* (Fluticasone Propionate* Nasal) 50 Mcg/[place] - 16 Gm [place].susp, 1 SPRAY NASAL DAILY, #1 BOTTLE TO EACH NOSTRIL 10/21/16 Fluoxetine Hcl* (Fluoxetine Hcl*) 20 Mg Capsule, 20 MG PO DAILY 10/13/13 Discontinued Scripts Albuterol Sulfate* (Albuterol Sulfate* HFA) 8.5 Gm Hfa.aer.ad, 1-2 PUFF INH Q4 Y for SHORTNESS OF BREATH, #1 EA Prov:SIENA ZAMORA MD 01/19/15 Allergies Allergies: Coded Allergies: cephalexin (Verified Allergy, Unknown, RASH, 04/28/17) PMhx/Soc History of Surgery: Yes (CHOLECYSTECTOMY, TUBAL LIGATION) Anesthesia Reaction: No Hx Neurological Disorder: No Hx Respiratory Disorders: Yes (COPD, ASTHMA) Hx Cardiac Disorders: Yes (HTN, HYPERLIPIDEMIA) Hx Psychiatric Problems: Yes (DEPRESSION) Hx Alcohol Use: No Hx Substance Use: No Hx Tobacco Use: No Smoking Status: Former smoker FmHx Family History: diabetes Physical Exam Vitals Vital Signs Date Time Temp Pulse Resp B/P Pulse Ox O2 Delivery O2 Flow Rate FiO2 04/28/17 16:25 0 04/28/17 15:40 74 18 113/63 99 Room Air 04/28/17 15:35 72 18 122/60 96 Physical Exam Const: No acute distress Head: Atraumatic Eyes: Normal Conjunctiva ENT: Normal External Ears, Nose and Mouth. Neck: Full range of motion..~ No meningismus. Resp: Clear to auscultation bilaterally Cardio: Regular rate and rhythm, no murmurs Abd: Soft, non tender, non distended. Normal bowel sounds Skin: No petechiae or rashes Back: No midline or flank tenderness Ext: No cyanosis, or edema Neur: Awake and alert Rectal: Skin tags around the anus but no obvious hemorrhoid, no active bleeding at this time seen Result Diagram: 04/28/17 1559 04/28/17 1559 Results 24 hrs Laboratory Tests Test 04/28/17 15:59 White Blood Count 6.910^3/ul Red Blood Count 4.3110^6/ul Hemoglobin 12.6g/dl Hematocrit 38.7% Mean Corpuscular Volume 89.8fl Mean Corpuscular Hemoglobin 29.2pg Mean Corpuscular Hemoglobin Concent 32.6g/dl Red Cell Distribution Width 13.0% Platelet Count 73726^3/UL Mean Platelet Volume 9.6fl Neutrophils % 54.5% Lymphocytes % 32.2% Monocytes % 9.2% Eosinophils % 2.7% Basophils % 1.0% Nucleated Red Blood Cells % 0.0/100WBC Neutrophils # 3.810^3/ul Lymphocytes # 2.210^3/ul Monocytes # 0.610^3/ul Eosinophils # 0.210^3/ul Basophils # 0.110^3/ul Nucleated Red Blood Cells # 0.010^3/ul Prothrombin Time 13.9Sec Prothrombin Time Ratio 1.1 INR International Normalized Ratio 1.07 Activated Partial Thromboplast Time 29.8Sec Sodium Level 142mmol/L Potassium Level 4.0mmol/L Chloride Level 108mmol/L Carbon Dioxide Level 25mmol/L Anion Gap 13 Blood Urea Nitrogen 19mg/dl Creatinine 0.92mg/dl Glucose Level 86mg/dl Calcium Level 9.4mg/dl Total Bilirubin 0.5mg/dl Direct Bilirubin 0.00mg/dl Indirect Bilirubin 0.5mg/dl Aspartate Amino Transf (AST/SGOT) 32IU/L Alanine Aminotransferase (ALT/SGPT) 38IU/L Alkaline Phosphatase 95IU/L Troponin I < 0.012ng/ml Total Protein 7.5g/dl Albumin 4.1g/dl Globulin 3.40g/dl Albumin/Globulin Ratio 1.20 Current Medications Medications (Trade) Dose Ordered Sig/Key Route PRN Reason Start Time Stop Time Status Last Admin Dose Admin Pantoprazole (Protonix Iv) 40 mg ONCE STAT IV 04/28/17 15:51 04/28/17 15:52 DC 04/28/17 16:29 Ondansetron HCl (Zofran Inj) 4 mg BRIDGE ORDER PRN IV NAUSEA AND/OR VOMITING 04/28/17 18:00 04/29/17 17:59 Acetaminophen (Tylenol Tab) 650 mg ER BRIDGE PRN PO MILD PAIN/FEVER 04/28/17 18:00 04/29/17 17:59 Procedures/MDM EKG read by me: Rate/Rhythm: Regular rate and rhythm at a normal rate Intervals: Normal Impression: No evidence of ischemia or arrhythmia Patient is a 77-year-old female who takes a baby aspirin who presents with rectal bleeding. I am concerned about a lower GI bleed. The patient was given Protonix empirically. The patient will be admitted to the panel team for further evaluation and treatment. Given her age I am concerned about continuing bleed. Patient will be admitted to a medical surgical bed. This point the patient's hemoglobin is normal and she does not require transfusion however if the hemoglobin drops she may require transfusion while admitted. Departure Diagnosis: Primary Impression: Rectal hemorrhage Condition: GARFIELD Pearce MD Apr 28, 2017 19:10
[2017-04-28 19:41] VITALS: TEMP 98.4
[2017-04-28 20:00] VITALS: Ht 154.9 cm; Wt 65.3 kg
[2017-04-28] MEDS ORDERED: morphine 2 MG INJ IV PRN (20:30)
[2017-04-28] MEDS ORDERED: traMADol 50 MG TAB PO PRN (20:30)
[2017-04-28] MEDS ORDERED: NACL 0.9% 3 ML SYG IV SCH (20:30)
[2017-04-28 21:30] VITALS: BP 154/71; RESP 20
[2017-04-28] MEDS ORDERED: BISACODYL (EC) 5 MG TAB PO ONE (23:00)
[2017-04-28] MEDS: SOD CHLORIDE 0.9% 1,000 ML IV SCH (23:06)
[2017-04-28] MEDS: MONTELUKAST 10 MG TAB PO SCH (23:06)
[2017-04-28] MEDS: ATENOLOL 25 MG TAB PO SCH (23:07)
[2017-04-28] MEDS: GABAPENTIN 300 MG CAP PO SCH (23:08)
[2017-04-28] MEDS: ATORVASTATIN 10 MG TAB PO SCH (23:08)
[2017-04-28] MEDS: BACLOFEN 10 MG TAB PO SCH (23:08)
[2017-04-29] VITALS (13 sets, daily range): BP systolic 104–176; BP diastolic 54–75; PULSE 60–78; RESP 14–20
[2017-04-29 01:21] LABS: HEMATOCRIT 38.3 % (37.0-47.0); HEMOGLOBIN 12.2 g/dl (12.0-16.0)
--- NOTE | 2017-04-29 01:23 | HP ---
Date/Time of Note Date/Time of Note DATE: 04/29/17 TIME: 01:20 Assessment/Plan VTE Prophylaxis VTE Prophylaxis Intervention: SCD's Assessment/Plan Chief Complaint/Hosp Course This is a 77 year female being admitted to the [facility] floor for: #1 suspected lower GI bleed: There is varying reports of the type of blood that was seen by the patient as per ED physician documentation there was blood noted in the stool however when I examined the patient she states she only noticed blood when she was wiping. At the current time patient is hemodynamically stable. She has not had any bloody stool after being admitted. Will continue to monitor hemoglobin every 6 hours. We will keep the patient n.p.o. We will have her scheduled for a colonoscopy tomorrow, GI was already consulted. She will also be bowel prepped tonight. #2 hypothyroidism: We will check a TSH level, will continue patient's home dose of levothyroxine #3 depression: We will continue patient's antidepressants #4 Asthma: Patient is not currently on any inhalers. Will continue her loratadine and Singulair #5 DVT GI prophylaxis: SCDs, Protonix Further treatment strategy will be implemented as per the clinical course Problems: HPI/ROS Admit Date/Time Admit Date/Time Apr 28, 2017 at 17:46 Hx of Present Illness Chief complaint: Rectal bleed. The patient is a 77-year-old female with asthma and hypertension who presents with a rectal bleed. According to the ER physician the patient reported that she was having bleeding with flatus and with her bowel movements. She denies pain. She says that she has never had this before. She was seen by Dr. Kline who saw her in the office and saw active bleeding and sent her to the ER for evaluation and likely admission. She does admit the chest pain yesterday but none today. She takes 81 mg of aspirin daily. Her primary doctor is Dr. Millard. Upon my examination when questioned about her bloody stool patient only reports noticing blood when she was wiping with her tissue after having a BM. She denies any history of having colonoscopy before. There does appear to be some discrepancy regarding her history. Allergies: Cephalexin Medications: See SEP ROS Const: As per HPI Eyes : No pain discharge or redness or change in visual acuity ENT: No pain, sore throat, congestion, congestion, dysphagia or discharge Respiratory: No shortness of breath, cough, sputum, wheezing, or pleuritic pain Cardiovascular: No chest pain, palpitation, PND, or edema GI : as per HPI Genitourinary: No dysuria, hematuria, flank pain , discharge or CVA tenderness Musculoskeletal: No joint pain, back pain, neck pain, restricted range of motion in neck or joints Skin: No rash, bruising or hives Neuro: No headache, dizziness, syncope, seizure, focal weakness Endocrine: No polyuria, polydipsia, temperature intolerance Psych: No hallucination, depression, anxiety or suicidal ideation PMH/Family/Social Past Medical History Depression, asthma, hyperlipidemia, hypothyroidism Past Surgical History Past Surgical Hx: cholecystectomy Family History Significant Family History: no pertinent family hx Social History Alcohol Use: none Smoking Status: Never smoker Drug Use: none Exam/Review of Systems Vital Signs Vitals Vital Signs Date Time Temp Pulse Resp B/P Pulse Ox O2 Delivery O2 Flow Rate FiO2 04/28/17 21:30 97.7 53 20 154/71 97 04/28/17 19:41 Room Air 04/28/17 16:25 0 Exam Exam General: Patient is well-developed well-nourished The patient is alert oriented -3 lying comfortably in bed. HEENT: Atraumatic, normocephalic. The pupils are equal, round and reactive. Extraocular motor are intact Neck: Supple with full range of motion. No rigidity or meningismus Chest: Nontender Lungs: Clear to auscultation bilaterally no crackles rales or wheezing Heart: Normal S1-S2, Regular rhythm and rate. Abdomen: Soft , nontender, nondistended , bowel sounds are present. No guarding no rebound tenderness , No masses or organomegaly. No costovertebral temporal angle mass Extremities: Normal to inspection, no edema no cyanosis Neurologic: Normal mental status, speech normal, cranial nerves II through XII are intact, motor and sensory are intact, no focal weakness Genitourinary: Patient deferred rectal exam is here to be checked in the ER as per ED physician documentation:Skin tags around the anus but no obvious hemorrhoid, no active bleeding at this time seen Additional Comments EKG read by me: Rate/Rhythm: Regular rate and rhythm at a normal rate Intervals: Normal Impression: No evidence of ischemia or arrhythmia as per ED physician documentation Labs Result Diagram: 04/28/17201004/28/17 1559 Medications Medications Current Medications Sodium Chloride (NS) 1,000 ml @ 75 mls/hr [id number] IV Last administered on 04/28 23:06; Admin Dose 75 MLS/HR; Start 04/28/17 at 20:16 Ondansetron HCl (Zofran Inj) 4 mg Q6H PRN IV NAUSEA AND/OR VOMITING; Start 04/28/17 at 20:30 Acetaminophen (Tylenol Tab) 650 mg Q6H PRN PO PAIN LEVEL 1-3 OR FEVER; Start 04/28/17 at 20:30 Morphine Sulfate (morphine) 2 mg Q4H PRN IV PAIN LEVEL 7-10; Start 04/28/17 at 20:30 Pantoprazole (Protonix Iv) 40 mg DAILY@06 IV ; Start 04/29/17 at 06:00 Atenolol (Tenormin) 25 mg BID PO Last administered on 04/28/17 23:07; Admin Dose 25 MG; Start 04/28/17 at 21:00 Baclofen (Lioresal) 10 mg BID PO Last administered on 04/28/17 23:08; Admin Dose 10 MG; Start 04/28/17 at 21:00 Fluoxetine HCl (Prozac) 10 mg DAILY PO ; Start 04/29/17 at 09:00 Gabapentin (Neurontin) 600 mg TID PO Last administered on 04/28/17 23:08; Admin Dose 600 MG; Start 04/28/17 at 21:00 Loratadine (Claritin) 10 mg DAILY PO ; Start 04/29/17 at 09:00 Montelukast Sodium (Singulair) 10 mg QHS PO Last administered on 04/28/17 23: 06; Admin Dose 10 MG; Start 04/28/17 at 21:00 Tramadol HCl (Ultram) 50 mg Q6H PRN PO PAIN; Start 04/28/17 at 20:30 Atorvastatin Calcium (Lipitor) 10 mg DAILY@21 PO Last administered on 23:08; Admin Dose 10 MG; Start 04/28/17 at 21:00 ROSMERY KENT Apr 29, 2017 01:23
[2017-04-29] MEDS ORDERED: POLYETHYLENE GLYCOL 3350 119 GM POWDER PO ONE (06:00)
[2017-04-29 06:02] LABS: HEMATOCRIT 41.5 % (37.0-47.0); HEMOGLOBIN 13.2 g/dl (12.0-16.0)
[2017-04-29 06:25] LABS: INR 1.1; PROTIME 14.2 Sec (12.2-14.2); PT RATIO 1.1
[2017-04-29 06:26] LABS: PARTIAL THROMBOPLASTIN TIME 30.7 Sec (25.0-35.0)
[2017-04-29] MEDS: LEVOTHYROXINE 75 MCG TAB PO SCH (06:29)
[2017-04-29] MEDS: PANTOPRAZOLE 40 MG INJ IV SCH (06:29)
[2017-04-29] MEDS ORDERED: PROPOFOL 200 MG INJ ONE (07:00)
[2017-04-29 07:02] LABS: BILIRUBIN,INDIRECT 0.4 mg/dl (0-1.1); BILIRUBIN,TOTAL 0.4 mg/dl (0.2-1.3); CHOL/HDL RATIO 3.9 RATIO; CREATININE 0.94 mg/dl (0.44-1.00); MAGNESIUM 2.3 mg/dl (1.7-2.5); POTASSIUM 3.8 mmol/L (3.5-5.1)
[2017-04-29 07:30] LABS: THYROID STIMULATING HORMONE 6.72 MIU/L (0.465-4.680)
[2017-04-29] MEDS ORDERED: BISACODYL (EC) 5 MG TAB PO ONE (08:00)
[2017-04-29] MEDS: ATENOLOL 25 MG TAB PO SCH ×2 (09:00→20:24)
[2017-04-29] MEDS: GABAPENTIN 300 MG CAP PO SCH ×3 (09:32→20:23)
[2017-04-29] MEDS: LORATADINE 10 MG TAB PO SCH (09:32)
[2017-04-29] MEDS: BACLOFEN 10 MG TAB PO SCH ×2 (09:32→20:23)
[2017-04-29] MEDS: FLUOXETINE 10 MG CAP PO SCH (09:32)
[2017-04-29 12:34] LABS: HEMATOCRIT 39.7 % (37.0-47.0); HEMOGLOBIN 12.7 g/dl (12.0-16.0)
[2017-04-29] MEDS: SOD CHLORIDE 0.9% 1,000 ML IV SCH ×2 (13:16→22:45)
--- NOTE | 2017-04-29 18:14 | CONS ---
Date/Time of Note Date/Time of Note DATE: 04/29/17 TIME: 18:14 Assessment/Plan Assessment/Plan Additional Assessment/Plan Impression: * Lower GI bleeding/hematochezia * Rule out hemorrhoidal versus colonic sources. * History of hypothyroidism * History of asthma * History of depression Plan: * Monitor H&H, transfuse as necessary * Colonoscopy. Patient informed risks, benefits and alternatives. Agreeable to proceed. Consultation Date/Type/Reason Admit Date/Time Apr 28, 2017 at 17:46 Date of Consultation: Apr 29, 2017 Type of Consultation: GI Reason for Consultation Hematochezia Hx of Present Illness 77-year-old female presented to the emergency room with episodes of hematochezia. She is hospitalized for further management. The patient denies changes in bowel habits, denies previous colonoscopy. Her hemoglobin is adequate at the present time and will be closely monitored. Patient will undergo colonoscopy at this time and further recommendation will depend patient' s clinical course as well as her findings. The procedure has been explained to the patient in detail including risks, benefits and alternatives. She is agreeable to proceed. Constitutional: improved, no complaints Eyes: no complaints ENT: no complaints Respiratory: no complaints Cardiovascular: no complaints Gastrointestinal: other (See HPI) Genitourinary: no complaints Musculoskeletal: no complaints Skin: no complaints Neurologic: no complaints Endocrine: no complaints Lymphatic: no complaints Psychological: nl mood/affect, no complaints Immunologic: no complaints Past Medical History Hypothyroidism Asthma Depression Past Surgical History Past Surgical Hx: cholecystectomy Family History Significant Family History: no pertinent family hx Social History Alcohol Use: none Smoking Status: Never smoker Drug Use: none Exam/Review of Systems Vital Signs Vitals Vital Signs Date Time Temp Pulse Resp B/P Pulse Ox O2 Delivery O2 Flow Rate FiO2 04/29/17 17:33 98.2 64 18 136/75 96 Room Air 04/28/17 16:25 0 Intake and Output 04/28/17 04/28/17 04/29/17 15:00 23:00 07:00 Intake Total 495 ml Balance 495 ml Exam PHYSICAL EXAMINATION: GENERAL: Well developed, well nourished, obese, alert & oriented x 3, in no acute distress SKIN: No lesions, no stigmata chronic liver disease, no evidence of bleeding diathesis LYMPHATIC: No palpable lymphadenopathy. HEAD: Normocephalic, atraumatic, no tenderness. EYES: Pupils equal reactive to light and accommodation, full extraocular movements, sclera clear, non-icteric, no discharge. EARS/NOSE AND THROAT: Ears normal, nose normal, oropharynx normal, oral membranes well hydrated without lesions. NECK: Supple, no masses, thyroid normal, JVP within normal limits, carotids normal without bruits. CHEST: Inspection within normal limits. CARDIOVASCULAR: Heart: Regular rate and rhythm, no murmurs, gallops or rubs. Peripheral pulses present within normal limits, no cyanosis, clubbing or edemas. No pulsatile abdominal mass RESPIRATORY: Lungs clear to auscultation and percussion, no wheezing, no rubs GASTROINTESTINAL AND LIVER: Abdomen: Soft, non tenderness, non-distended, no hernias, no masses, no organomegaly, no ascites, no guarding, no rebound tenderness, normoactive bowel sounds. Rectal: Deferred. GENITOURINARY: [Female genitalia within normal limits.] EXTREMITIES: No cyanosis, clubbing or edema. Results Result Diagram: 04/29/17 1219 04/29/17 0500 Results 24 hrs Laboratory Tests Test 04/28/17 20:11 04/29/17 00:46 04/29/17 05:00 04/29/17 12:19 Platelet Count 268 Hemoglobin 12.2 13.2 12.7 Hematocrit 38.3 41.5 39.7 Prothrombin Time 14.2 Prothrombin Time Ratio 1.1 INR International Normalized Ratio 1.10 Activated Partial Thromboplast Time 30.7 Sodium Level 141 Potassium Level 3.8 Chloride Level 109 Carbon Dioxide Level 24 Anion Gap 12 Blood Urea Nitrogen 15 Creatinine 0.94 Glucose Level 83 Calcium Level 10.0 Magnesium Level 2.3 Total Bilirubin 0.4 Direct Bilirubin 0.00 Indirect Bilirubin 0.4 Aspartate Amino Transf (AST/SGOT) 35 Alanine Aminotransferase (ALT/SGPT) 40 Alkaline Phosphatase 90 Total Protein 8.0 Albumin 4.0 Globulin 4.00 H Albumin/Globulin Ratio 1.00 Triglycerides Level 109 Cholesterol Level 217 H LDL Cholesterol, Calculated 140 HDL Cholesterol 55 Cholesterol/HDL Ratio 3.9 Thyroid Stimulating Hormone (TSH) 6.720 H Free Thyroxine 1.16 Medications Medications Current Medications Sodium Chloride (NS) 1,000 ml @ 75 mls/hr [id number] IV Last administered on 04/29t 13:16; Admin Dose 75 MLS/HR; Start 04/28/17 at 20:16 Ondansetron HCl (Zofran Inj) 4 mg Q6H PRN IV NAUSEA AND/OR VOMITING; Start 04/28/17 at 20:30 Acetaminophen (Tylenol Tab) 650 mg Q6H PRN PO PAIN LEVEL 1-3 OR FEVER; Start 04/28/17 at 20:30 Morphine Sulfate (morphine) 2 mg Q4H PRN IV PAIN LEVEL 7-10; Start 04/28/17 at 20:30 Pantoprazole (Protonix Iv) 40 mg DAILY@06 IV Last administered on 04/29/17 06: 29; Admin Dose 40 MG; Start 04/29/17 at 06:00 Atenolol (Tenormin) 25 mg BID PO Last administered on 04/28/17 23:07; Admin Dose 25 MG; Start 04/28/17 at 21:00 Baclofen (Lioresal) 10 mg BID PO Last administered on 04/29/17 09:32; Admin Dose 10 MG; Start 04/28/17 at 21:00 Fluoxetine HCl (Prozac) 10 mg DAILY PO Last administered on 04/29/17 09:32; Admin Dose 10 MG; Start 04/29/17 at 09:00 Gabapentin (Neurontin) 600 mg TID PO Last administered on 04/29/17 13:15; Admin Dose 600 MG; Start 04/28/17 at 21:00 Loratadine (Claritin) 10 mg DAILY PO Last administered on 04/29/17 09:32; Admin Dose 10 MG; Start 04/29/17 at 09:00 Montelukast Sodium (Singulair) 10 mg QHS PO Last administered on 04/28/17 23: 06; Admin Dose 10 MG; Start 04/28/17 at 21:00 Tramadol HCl (Ultram) 50 mg Q6H PRN PO PAIN; Start 04/28/17 at 20:30 Atorvastatin Calcium (Lipitor) 10 mg DAILY@21 PO Last administered on 23:08; Admin Dose 10 MG; Start 04/28/17 at 21:00 Influenza Virus Vaccine (Fluzone) 0.5 ml ONCE ONCE IM* ; Start 04/30/17 at 09:00 ; Stop 04/30/17 at 09:01 Copies To: CC: KIMO SIMS MD, MORDO MD Apr 29, 2017 18:14
[2017-04-29] MEDS ORDERED: BARIUM SULF 2% 450 ML BTL (BERRY SMOOTHIE) PO ONE (18:30)
--- NOTE | 2017-04-29 18:32 | OPPN ---
Date/Time of Note Date/Time of Note DATE: 04/29/17 TIME: 18:25 Proc Note GI Procedure Date 04/29/17 Pre-procedure Diagnosis * Hematochezia Post-procedure Diagnosis Impression: * Isolated 1 cm ulceration in the sigmoid colon. Rule out inflammatory bowel disease, rule out ischemic, rule out neoplastic. Biopsies obtained * Otherwise normal colonic mucosa. Random biopsies obtained right colon and left colon. * Normal terminal ileum. Biopsies obtained * Large internal hemorrhoids, likely source of hematochezia. Plan: * Review pathology * Obtain CT enterography to rule out small bowel lesions that may suggest Crohn' s disease * IBD serology * Mesalamine 800 mg 3 times daily . Procedure Performed: Other (Colonoscopy plus biopsies. Enteroscopy (ileum) plus biopsies) Surgeon KIMO SIMS MD Tax Advisor none Anesthesia Type: MAC Anesthesiologist: ARNULFO ABDI MD Tourniquet Time none EBL none Transfusion required none Biopsy 1: Descending colon ulcer Biopsy 2: Terminal ileum Biopsy 3: Right colon Additional Biopsy: Left colon Grafts/Implants none Tubes/Drains none Complication(s) none Pt Condition post procedure: stable Disposition: PACU Indications: other (Hematochezia) Procedure Description After informed consent, with the patient/relatives understanding the procedure, its indications and potential risks and complications, including but not limited to: Allergic reaction, bleeding, perforation, infection, and after all pertinent questions were answered to the patient's satisfaction, the patient/ relatives signed the witnessed informed consent. Following this, premedication was administered slowly IV push under careful cardiovascular and respiratory monitoring with pulse OXIMETRY, automatic blood pressure, and gambling monitor. Once the sedative effect was achieved, the patient was placed in the left lateral decubitus position, digital rectal examination was performed. The colonoscope was then introduced and advanced under visual control throughout all segments of the colon including: the rectum, sigmoid, descending colon, splenic flexure, transverse colon, hepatic flexure, ascending colon and finally reaching the cecum which was clearly identified by transillumination, finger indentation and the ileocecal valve. Careful examination of the mucosa of the lower gastrointestinal tract both on insertion as well as withdrawal of the instrument disclosed the following findings: PREPARATION QUALITY: [Adequate], RECTAL EXAM: The anorectal area was visualized examined and digital rectal examination performed with the following findings: No evidence of perirectal disease, no masses. COLONIC MUCOSA: The mucosa of all segments of the colon was carefully examined and showed the following findings: There is a 1 cm isolated ulceration of benign endoscopic appearance in the mid descending colon. Multiple biopsies were obtained. The remainder of the colon mucosa is unremarkable. Random biopsies were obtained of the right colon and left colon. The terminal ileum and entered and examined approximately 20 cm which appeared unremarkable. Random biopsies were obtained. Large internal hemorrhoids are present likely representing the source of hematochezia. Otherwise the examined mucosa appears within normal limits. There is no evidence of diverticular formation, polyps or other neoplasms, vascular malformation, or any other abnormality. The instrument was then withdrawn, the patient tolerated the procedure well and was transferred out of the Endoscopy Suite awake and in good condition to continue recovery under observation. Copies To: CC: KIMO SIMS MD, MORDO MD Apr 29, 2017 18:32
--- NOTE | 2017-04-29 18:51 | OPPN ---
Date/Time of Note Date/Time of Note DATE: 04/29/17 TIME: 18:48 Proc Note GI Procedure Date 04/29/17 Pre-procedure Diagnosis * Failure to thrive/aspiration risk Post-procedure Diagnosis Impression: * Distal esophagitis * Uneventful PEG * Placement of Kazakh 20 gastrostomy tube * Otherwise normal EGD Plan: * Start feedings tomorrow morning * PPI therapy Procedure Performed: Other (EGD with PEG) Surgeon KIMO SIMS MD Displayer none Anesthesia Type: MAC Anesthesiologist: ARNULFO ABDI MD Tourniquet Time none EBL none Transfusion required none Biopsy 1: None Grafts/Implants none Tubes/Drains none Complication(s) none Pt Condition post procedure: stable Disposition: PACU Indications: other (Aspiration risk/failure to thrive) Procedure Description After informed consent, with the patient/relatives understanding the procedure, its indications, potential risks and complications, including but not limited to : Allergic reaction, bleeding, perforation or infection, and all after all pertinent questions were answered to the patient's satisfaction, patient/ relative signed witnessed informed consent. Following this, premedication was administered slowly IV push under care of cardiovascular respiratory monitoring with pulse oximetry, and automatic blood pressure, and bus driver/monitor. Once to sedative effect was achieved the patient was placed in the left lateral decubitus, the panendoscope was introduced and advanced under visual control. Careful examination of the upper gastrointestinal tract, both on insertion as well as withdrawal of the instrument disclosed following findings: ESOPHAGUS: The mucosa of the entire esophagus was carefully examined and showed the following findings: There is moderate erythema and edema of the mucosa of the distal esophagus. Otherwise the mucosa appears within normal limits. There is no evidence of varices, neoplasm or stricture. Small hiatal hernia identified.] Stomach: Upon entrance to the stomach air was insufflated, the gastric lisa distended normally. The mucosa of the fundus, body and antrum of the stomach was carefully examined both head-on and on retroflexion, and showed the following findings: [The mucosa appears within normal limits with no abnormalities. There is no evidence of gastritis, ulcers or neoplasm.] Pylorus: The pylorus was carefully examined and showed the following findings: [The pylorus appears patent and within normal limits, with no evidence of gastric outlet obstruction.] Duodenum: The duodenal mucosa was carefully examined in the duodenal bulb as well as the second portion of the duodenum and showed the following findings: [The mucosa appears unremarkable with no evidence of duodenitis, ulcer or neoplasm.] The instrument was then brought back to the stomach and the anterior wall mid- body was identified by transillumination and "finger indentation", this area was then marked in the anterior wall of the abdomen, it was cleansed with Betadine and infiltrated with Xylocaine 1%. Following this a trocar needle was introduced into the gastric lumen under visual control with the endoscope, once in the gastric lumen a guide wire was advanced and secured with a polypectomy snare, at this point the endoscope was withdrawn bringing the guidewire out through the patient's mouth. Following this a Kazakh #20 gastrostomy tube was introduced over the guidewire, with the [place]-Vinbeth[place] technique without difficulty , a small incision was performed in the skin to allow easy passage of the G-tube , once the position of the gastrostomy was confirmed, the external stopper and connectors were installed, and a clean dressing applied. The patient tolerated the procedure well and was transferred out of the endoscopy suite awake, and in good condition to continue recovery under observation, feedings will start in the next 12-24 hours and the discharge in the care will be instituted. Copies To: CC: KIMO SIMS MD, MORDO MD Apr 29, 2017 18:51
[2017-04-29 20:23] LABS: HEMATOCRIT 41.2 % (37.0-47.0); HEMOGLOBIN 13.1 g/dl (12.0-16.0)
[2017-04-29] MEDS: MONTELUKAST 10 MG TAB PO SCH (20:23)
[2017-04-29] MEDS: ATORVASTATIN 10 MG TAB PO SCH (20:23)
[2017-04-29] MEDS: MESALAMINE (EC) 400 MG CAP PO SCH (20:23)
[2017-04-30 01:16] LABS: HEMATOCRIT 39.8 % (37.0-47.0); HEMOGLOBIN 12.6 g/dl (12.0-16.0)
[2017-04-30 01:56] VITALS: BP 125/60; RESP 16
[2017-04-30 05:41] LABS: BASOPHIL # 0.1 10^3/ul (0.0-0.1); BASOPHILS % 1.1 % (0.0-2.0); EOSINOPHILS # 0.3 10^3/ul (0.0-0.5); EOSINOPHILS % 3.8 % (0.0-7.0); HEMATOCRIT 39.4 % (37.0-47.0); HEMOGLOBIN 12.5 g/dl (12.0-16.0); LYMPHOCYTES % 27.7 % (15.0-51.0); MEAN CORPUSCULAR HEMOGLOBIN 29.1 pg (29.0-33.0); MEAN CORPUSCULAR HGB CONC 31.7 g/dl (32.0-37.0); MEAN CORPUSCULAR VOLUME 91.6 fl (82.0-101.0); MEAN PLATELET VOLUME 9.5 fl (7.4-10.4); MONOCYTE # 0.7 10^3/ul (0.3-0.9); MONOCYTES % 9.9 % (0.0-11.0); NEUTROPHIL # 4.1 10^3/ul (1.6-7.5); NEUTROPHILS % 56.9 % (39.0-77.0); PLATELET COUNT 261 10^3/UL (140-415); RED CELL DISTRIBUTION WIDTH 13.5 % (11.5-14.5); WHITE BLOOD COUNT 7.1 10^3/ul (4.8-10.8)
[2017-04-30] MEDS: SOD CHLORIDE 0.9% 1,000 ML IV SCH ×2 (05:58→12:16)
[2017-04-30 06:01] LABS: ALBUMIN 3.5 g/dl (3.3-4.9); ALBUMIN/GLOBULIN RATIO 0.97; BILIRUBIN,INDIRECT 0.5 mg/dl (0-1.1); BILIRUBIN,TOTAL 0.5 mg/dl (0.2-1.3); CALCIUM 9.7 mg/dl (8.4-10.2); CREATININE 0.94 mg/dl (0.44-1.00); POTASSIUM 4.5 mmol/L (3.5-5.1); TOTAL PROTEIN 7.1 g/dl (6.1-8.1)
[2017-04-30 06:03] LABS: INR 1.13; PROTIME 14.5 Sec (12.2-14.2); PT RATIO 1.1
[2017-04-30] MEDS: LEVOTHYROXINE 75 MCG TAB PO SCH (06:03)
[2017-04-30] MEDS: PANTOPRAZOLE 40 MG INJ IV SCH (06:03)
[2017-04-30 06:04] LABS: PARTIAL THROMBOPLASTIN TIME 29.8 Sec (25.0-35.0)
[2017-04-30 06:06] LABS: PHOSPHORUS 4.7 mg/dl (2.5-4.9)
[2017-04-30 07:42] VITALS: BP 117/66; RESP 18
[2017-04-30] MEDS ORDERED: INFLUENZA VIRUS VACCINE 0.5 ML (DISPENSING) IM* ONE (09:00)
[2017-04-30] MEDS: LORATADINE 10 MG TAB PO SCH (10:08)
[2017-04-30] MEDS: GABAPENTIN 300 MG CAP PO SCH ×3 (10:08→21:17)
[2017-04-30] MEDS: MESALAMINE (EC) 400 MG CAP PO SCH ×3 (10:08→21:18)
[2017-04-30] MEDS: FLUOXETINE 10 MG CAP PO SCH (10:08)
[2017-04-30] MEDS: BACLOFEN 10 MG TAB PO SCH ×2 (10:10→21:18)
[2017-04-30] MEDS: ATENOLOL 25 MG TAB PO SCH ×2 (10:10→21:17)
--- NOTE | 2017-04-30 11:24 | PN ---
Date/Time of Note Date/Time of Note DATE: 04/30/17 TIME: 11:21 Assessment/Plan VTE Prophylaxis VTE Prophylaxis Intervention: SCD's Lines/Catheters IV [facility] Peripheral IV Urinary Cath still in place: No Assessment/Plan Chief Complaint/Hosp Course Assessment: Lower GI bleeding/hematochezia Colonoscopy * Isolated 1 cm ulceration in the sigmoid colon. Rule out inflammatory bowel disease, rule out ischemic, rule out neoplastic. Biopsies obtained * Otherwise normal colonic mucosa. Random biopsies obtained right colon and left colon. * Normal terminal ileum. Biopsies obtained * Large internal hemorrhoids, likely source of hematochezia. * History of hypothyroidism * History of asthma * History of depression Plan: Continue present regimen Review of CT enterography Advance diet as tolerated If diet well-tolerated she may be followed as an outpatient Subjective: Course reviewed with nursing staff Patient interviewed and examined All labs, imaging and other results reviewed The patient reports no GI symptoms No further GI bleeding Awaiting CT enterography and pathology Tolerating medications well Exam: General: well developed, well nourished, alert and oriented x3 , in no acute distress Skin: No lesions, no stigmata chronic liver disease, no evidence of bleeding diathesis Lymphatic: No palpable lymphadenopathy HEENT: No lesions Cardiovascular: Heart: Regular rate and rhythm, no murmurs, gallops or rubs. Peripheral pulses present within normal limits, no cyanosis, clubbing or edemas. No pulsatile abdominal mass Respiratory: Lungs clear to auscultation and percussion, no wheezing, no rubs Gastrointestinal and Liver: Abdomen: Soft, non tender, non-distended, no hernias , no masses, no organomegaly, no ascites, no guarding, no rebound tenderness, normoactive bowel sounds. Extremities: No cyanosis, clubbing, or edema. [Neurologic: Cranial nerves II-XII intact, motor within normal limits, sensory within normal limits. Reflexes within normal limits.] [Psychiatric: Alert and oriented x3, mood/affect/judgment adequate] Diagnostic Studies: Available data and images were reviewed personally. See reports. Significant results and findings are addressed here or in the assessment and plan. Problems: Exam/Review of Systems Vital Signs Vitals Vital Signs Date Time Temp Pulse Resp B/P Pulse Ox O2 Delivery O2 Flow Rate FiO2 04/30/17 07:42 97.9 66 18 117/66 95 04/29/17 18:52 High Flow 04/28/17 16:25 0 Intake and Output 04/29/17 04/29/17 04/30/17 15:00 23:00 07:00 Intake Total 625 ml 980 ml 900 ml Balance 625 ml 980 ml 900 ml Results Result Diagram: 04/30/17 0432 04/30/17 0506 Results 24 hrs Laboratory Tests Test 04/29/17 12:19 04/29/17 20:02 04/30/17 00:51 04/30/17 04:32 Hemoglobin 12.7 13.1 12.6 12.5 Hematocrit 39.7 41.2 39.8 39.4 White Blood Count 7.1 Red Blood Count 4.30 Mean Corpuscular Volume 91.6 Mean Corpuscular Hemoglobin 29.1 Mean Corpuscular Hemoglobin Concent 31.7 L Red Cell Distribution Width 13.5 Platelet Count 261 Mean Platelet Volume 9.5 Neutrophils % 56.9 Lymphocytes % 27.7 Monocytes % 9.9 Eosinophils % 3.8 Basophils % 1.1 Nucleated Red Blood Cells % 0.0 Neutrophils # 4.1 Lymphocytes # 2.0 Monocytes # 0.7 Eosinophils # 0.3 Basophils # 0.1 Nucleated Red Blood Cells # 0.0 Test 04/30/17 05:06 Prothrombin Time 14.5 H Prothrombin Time Ratio 1.1 INR International Normalized Ratio 1.13 Activated Partial Thromboplast Time 29.8 Sodium Level 143 Potassium Level 4.5 Chloride Level 113 H Carbon Dioxide Level 25 Anion Gap 10 Blood Urea Nitrogen 14 Creatinine 0.94 Glucose Level 77 Calcium Level 9.7 Phosphorus Level 4.7 Magnesium Level 2.0 Total Bilirubin 0.5 Direct Bilirubin 0.00 Indirect Bilirubin 0.5 Aspartate Amino Transf (AST/SGOT) 35 Alanine Aminotransferase (ALT/SGPT) 42 Alkaline Phosphatase 77 Total Protein 7.1 Albumin 3.5 Globulin 3.60 H Albumin/Globulin Ratio 0.97 Medications Medications Current Medications Sodium Chloride (NS) 1,000 ml @ 75 mls/hr [id number] IV Last administered on 04/30t 05:58; Admin Dose 75 MLS/HR; Start 04/28/17 at 20:16 Ondansetron HCl (Zofran Inj) 4 mg Q6H PRN IV NAUSEA AND/OR VOMITING; Start 04/28/17 at 20:30 Acetaminophen (Tylenol Tab) 650 mg Q6H PRN PO PAIN LEVEL 1-3 OR FEVER; Start 04/28/17 at 20:30 Morphine Sulfate (morphine) 2 mg Q4H PRN IV PAIN LEVEL 7-10; Start 04/28/17 at 20:30 Pantoprazole (Protonix Iv) 40 mg DAILY@06 IV Last administered on 04/30/17 06: 03; Admin Dose 40 MG; Start 04/29/17 at 06:00 Atenolol (Tenormin) 25 mg BID PO Last administered on 04/30/17 10:10; Admin Dose 25 MG; Start 04/28/17 at 21:00 Baclofen (Lioresal) 10 mg BID PO Last administered on 04/30/17 10:10; Admin Dose 10 MG; Start 04/28/17 at 21:00 Fluoxetine HCl (Prozac) 10 mg DAILY PO Last administered on 04/30/17 10:08; Admin Dose 10 MG; Start 04/29/17 at 09:00 Gabapentin (Neurontin) 600 mg TID PO Last administered on 04/30/17 10:08; Admin Dose 600 MG; Start 04/28/17 at 21:00 Loratadine (Claritin) 10 mg DAILY PO Last administered on 04/30/17 10:08; Admin Dose 10 MG; Start 04/29/17 at 09:00 Montelukast Sodium (Singulair) 10 mg QHS PO Last administered on 04/29/17 20: 23; Admin Dose 10 MG; Start 04/28/17 at 21:00 Tramadol HCl (Ultram) 50 mg Q6H PRN PO PAIN; Start 04/28/17 at 20:30 Atorvastatin Calcium (Lipitor) 10 mg DAILY@21 PO Last administered on 20:23; Admin Dose 10 MG; Start 04/28/17 at 21:00 Mesalamine (Delzicol Dr) 800 mg TID PO Last administered on 04/30/17 10:08; Admin Dose 800 MG; Start 04/29/17 at 21:00 KIMO SIMS MD Apr 30, 2017 11:24
[2017-04-30] MEDS ORDERED: SOD CHLORIDE 0.9% 100 ML ONE (12:52)
[2017-04-30] MEDS ORDERED: IOHEXOL 100 ML ONE (12:52)
[2017-04-30] MEDS ORDERED: IOHEXOL 350MG/ML 50 ML BTL ONE (12:52)
[2017-04-30] MEDS ORDERED: GLUCAGON 1 MG INJ ONE (13:13)
[2017-04-30] MEDS ORDERED: BARIUM SULFATE 0.1% 450 ML BTL (VOLUMEN) PO ONE (13:14)
[2017-04-30 14:07] VITALS: BP 147/67; RESP 18
--- NOTE | 2017-04-30 14:38 | RADRPT ---
PROCEDURE: CT abdomen and pelvis enterography with contrast. CLINICAL INDICATION: abdominal pain TECHNIQUE: A CT enterography study was performed on the [employer] CT scanner with contiguous high resolution thin slice axial images obtained through the abdomen and pelvis. The patient was examined during the ar terial phase after injection of 100 ml of Omnipaque 350. The patient received 1350 ml of volumen ora lly. High-density contrast also given orally. Coronal and sagittal reformatted images were obtaine d from the axial source images. Images were reviewed on a PACS workstation. One or more of the following dose reduction techniques were used: Automated exposure control. Adjustment of the mA and/or kV according to patient size. Use of iterative reconstruction technique. DLP 790.4 mGycm. CTDIvol 15.7 mGy COMPARISON: 10/21/2016 FINDINGS: The lung bases are clear. Due to administration of high-density oral contrast evaluation for mucosal hyperenhancement is limit ed. There is diffuse contrast opacification of small and large bowel with no evidence of visible foc al wall thickening or edema with no adjacent fat stranding. The stomach is also prominently distende d with oral contrast. There is no free air or free fluid. There is no visible mesenteric fat and vas cular proliferation with no enlarged lymph nodes. There is uniform enhancement of the liver with no focal lesion or biliary ductal dilatation. The ga llbladder is removed, and the portal vein is intact without thrombus. The spleen is unremarkable without mass. The adrenal glands are within normal limits without mass. The kidneys enhance symmetrically bilaterally without hydronephrosis or perinephric stranding. Surgical changes of right inguinal hernia repair. There is a small fat containing left inguinal chadd ia which involves a loop of small bowel without visible inflammation. The pancreas is unremarkable without focal lesion or surrounding inflammatory changes. There are no enlarged lymph nodes. There is aortic atherosclerosis without aneurysmal dilatation. Degenerative changes are seen in the lumbar spine with no acute osseous abnormality. The uterus and adnexal structures within normal limits. IMPRESSION: Evaluation for mucosal hyperenhancement is limited due to the presence of dense oral contrast. No vi sible acute or chronic inflammatory changes are seen involving the small or large bowel. There is no obstruction. There is a small fat containing left inguinal hernia which involves a loop of small bowel without st rangulation. There are surgical changes of right inguinal hernia repair. Atherosclerotic disease. RPTAT: AA .Shamika Olivo MD, MD Date Time Electronically viewed and signed by .Shamika Olivo MD, MD on 04/30/2017 14:38 .J/
--- NOTE | 2017-04-30 15:14 | PN ---
Date/Time of Note Date/Time of Note DATE: 04/30/17 TIME: 15:13 Assessment/Plan VTE Prophylaxis VTE Prophylaxis Intervention: SCD's Lines/Catheters IV [facility] (from [facility]): Peripheral IV Urinary Cath still in place: No Assessment/Plan Chief Complaint/Hosp Course 1. Hematochezia. Status post colonoscopy that showed isolated a 1 cm ulceration in the sigmoid colon. Patient to undergo a CT enterography to rule out small bowel lesions that may suggest Crohn's disease. IBD serology has been sent. The patient was started on mesalamine. 2. Hypothyroidism. Continue Synthroid. 3. Depression. Continue SSRI. 4. Essential hypertension. Continue antihypertensives. 5. Asthma. No acute exacerbation. Continue leukotriene inhibitors. 6. DVT prophylaxis. Bilateral sequential compression devices. 7. Plan. Continue current management. Await further recommendations from Gastroenterology. Case discussed with Dr. Reed. Problems: Subjective 24 Hr Interval Summary Free Text/Dictation Denies any abdominal pain. Exam/Review of Systems Vital Signs Vitals Vital Signs Date Time Temp Pulse Resp B/P Pulse Ox O2 Delivery O2 Flow Rate FiO2 04/30/17 14:07 97.7 63 18 147/67 93 04/29/17 18:52 High Flow 04/28/17 16:25 0 Intake and Output 04/29/17 04/29/17 04/30/17 15:00 23:00 07:00 Intake Total 625 ml 980 ml 900 ml Balance 625 ml 980 ml 900 ml Exam General: Adequately build 77 year-old female lying in bed in no apparent distress. HEENT: Normocephalic, atraumatic. Eyes: Anicteric sclerae, conjunctivae clear. ENT: Nasal septum midline, oral mucosa moist. Neck supple, no JVD noticed. Respiratory: Bilaterally clear breath sounds. No use of accessory muscles of respiration. No adventitious breath sounds. Cardiovascular: S1, S2 heard. No murmurs or gallops. Abdomen: Soft, nontender, and nondistended. Bowel sounds positive in all 4 quadrants. Genitourinary: Deferred. Extremities: No cyanosis, no clubbing, no edema. Peripheral pulses palpable. Neurologic: Cranial nerves II through XII grossly intact. The patient is awake, alert, and oriented. Skin: Normal skin turgor. No skin rashes. Results Result Diagram: 04/30/17 0432 04/30/17 0506 Results 24 hrs Laboratory Tests Test 04/29/17 20:02 04/30/17 00:51 04/30/17 04:32 04/30/17 05:06 Hemoglobin 13.1 12.6 12.5 Hematocrit 41.2 39.8 39.4 White Blood Count 7.1 Red Blood Count 4.30 Mean Corpuscular Volume 91.6 Mean Corpuscular Hemoglobin 29.1 Mean Corpuscular Hemoglobin Concent 31.7 L Red Cell Distribution Width 13.5 Platelet Count 261 Mean Platelet Volume 9.5 Neutrophils % 56.9 Lymphocytes % 27.7 Monocytes % 9.9 Eosinophils % 3.8 Basophils % 1.1 Nucleated Red Blood Cells % 0.0 Neutrophils # 4.1 Lymphocytes # 2.0 Monocytes # 0.7 Eosinophils # 0.3 Basophils # 0.1 Nucleated Red Blood Cells # 0.0 Prothrombin Time 14.5 H Prothrombin Time Ratio 1.1 INR International Normalized Ratio 1.13 Activated Partial Thromboplast Time 29.8 Sodium Level 143 Potassium Level 4.5 Chloride Level 113 H Carbon Dioxide Level 25 Anion Gap 10 Blood Urea Nitrogen 14 Creatinine 0.94 Glucose Level 77 Calcium Level 9.7 Phosphorus Level 4.7 Magnesium Level 2.0 Total Bilirubin 0.5 Direct Bilirubin 0.00 Indirect Bilirubin 0.5 Aspartate Amino Transf (AST/SGOT) 35 Alanine Aminotransferase (ALT/SGPT) 42 Alkaline Phosphatase 77 Total Protein 7.1 Albumin 3.5 Globulin 3.60 H Albumin/Globulin Ratio 0.97 Medications Medications Current Medications Ondansetron HCl (Zofran Inj) 4 mg Q6H PRN IV NAUSEA AND/OR VOMITING; Start 04/28/17 at 20:30 Acetaminophen (Tylenol Tab) 650 mg Q6H PRN PO PAIN LEVEL 1-3 OR FEVER; Start 04/28/17 at 20:30 Morphine Sulfate (morphine) 2 mg Q4H PRN IV PAIN LEVEL 7-10; Start 04/28/17 at 20:30 Pantoprazole (Protonix Iv) 40 mg DAILY@06 IV Last administered on 04/30/17 06: 03; Admin Dose 40 MG; Start 04/29/17 at 06:00 Atenolol (Tenormin) 25 mg BID PO Last administered on 04/30/17 10:10; Admin Dose 25 MG; Start 04/28/17 at 21:00 Baclofen (Lioresal) 10 mg BID PO Last administered on 04/30/17 10:10; Admin Dose 10 MG; Start 04/28/17 at 21:00 Fluoxetine HCl (Prozac) 10 mg DAILY PO Last administered on 04/30/17 10:08; Admin Dose 10 MG; Start 04/29/17 at 09:00 Gabapentin (Neurontin) 600 mg TID PO Last administered on 04/30/17 10:08; Admin Dose 600 MG; Start 04/28/17 at 21:00 Loratadine (Claritin) 10 mg DAILY PO Last administered on 04/30/17 10:08; Admin Dose 10 MG; Start 04/29/17 at 09:00 Montelukast Sodium (Singulair) 10 mg QHS PO Last administered on 04/29/17 20: 23; Admin Dose 10 MG; Start 04/28/17 at 21:00 Tramadol HCl (Ultram) 50 mg Q6H PRN PO PAIN; Start 04/28/17 at 20:30 Atorvastatin Calcium (Lipitor) 10 mg DAILY@21 PO Last administered on 20:23; Admin Dose 10 MG; Start 04/28/17 at 21:00 Mesalamine (Delzicol Dr) 800 mg TID PO Last administered on 04/30/17 10:08; Admin Dose 800 MG; Start 04/29/17 at 21:00 SENDY ALVARADO NP Apr 30, 2017 15:14
[2017-04-30 19:19] VITALS: BP 103/56; RESP 18
[2017-04-30] MEDS: ATORVASTATIN 10 MG TAB PO SCH (21:18)
[2017-04-30] MEDS: MONTELUKAST 10 MG TAB PO SCH (21:18)
[2017-05-01 02:00] VITALS: BP 111/56; RESP 18
[2017-05-01] MEDS: PANTOPRAZOLE 40 MG INJ IV SCH (05:56)
[2017-05-01] MEDS: LEVOTHYROXINE 75 MCG TAB PO SCH (06:05)
[2017-05-01 06:16] LABS: BASOPHIL # 0.1 10^3/ul (0.0-0.1); BASOPHILS % 0.8 % (0.0-2.0); EOSINOPHILS # 0.3 10^3/ul (0.0-0.5); EOSINOPHILS % 3.5 % (0.0-7.0); HEMATOCRIT 40.6 % (37.0-47.0); HEMOGLOBIN 12.9 g/dl (12.0-16.0); LYMPHOCYTES # 2.5 10^3/ul (0.8-2.9); LYMPHOCYTES % 31.6 % (15.0-51.0); MEAN CORPUSCULAR HEMOGLOBIN 29.1 pg (29.0-33.0); MEAN CORPUSCULAR HGB CONC 31.8 g/dl (32.0-37.0); MEAN CORPUSCULAR VOLUME 91.4 fl (82.0-101.0); MEAN PLATELET VOLUME 9.7 fl (7.4-10.4); MONOCYTE # 0.8 10^3/ul (0.3-0.9); MONOCYTES % 9.6 % (0.0-11.0); NEUTROPHIL # 4.3 10^3/ul (1.6-7.5); PLATELET COUNT 297 10^3/UL (140-415); RED BLOOD COUNT 4.44 10^6/ul (4.20-5.40); RED CELL DISTRIBUTION WIDTH 13.3 % (11.5-14.5)
[2017-05-01 06:17] LABS: CALCIUM 9.5 mg/dl (8.4-10.2); CREATININE 1.1 mg/dl (0.44-1.00); POTASSIUM 4.5 mmol/L (3.5-5.1)
[2017-05-01 06:29] LABS: MAGNESIUM 1.9 mg/dl (1.7-2.5); PHOSPHORUS 4.9 mg/dl (2.5-4.9)
[2017-05-01 07:05] LABS: INR 1.07; PROTIME 13.9 Sec (12.2-14.2); PT RATIO 1.1
[2017-05-01 08:03] VITALS: BP 106/57; RESP 18
[2017-05-01] MEDS: BACLOFEN 10 MG TAB PO SCH ×2 (08:55→20:44)
[2017-05-01] MEDS: GABAPENTIN 300 MG CAP PO SCH ×3 (08:55→20:45)
[2017-05-01] MEDS: LORATADINE 10 MG TAB PO SCH (08:55)
[2017-05-01] MEDS: FLUOXETINE 10 MG CAP PO SCH (08:55)
[2017-05-01] MEDS: MESALAMINE (EC) 400 MG CAP PO SCH ×3 (08:55→20:44)
[2017-05-01] MEDS: ATENOLOL 25 MG TAB PO SCH ×2 (08:56→20:46)
[2017-05-01 13:58] VITALS: BP 141/63; RESP 18
--- NOTE | 2017-05-01 14:08 | PN ---
Date/Time of Note Date/Time of Note DATE: 05/01/17 TIME: 14:04 Assessment/Plan VTE Prophylaxis VTE Prophylaxis Intervention: SCD's Lines/Catheters [facility] Peripheral IV Urinary Cath still in place: No Assessment/Plan Chief Complaint/Hosp Course Assessment: Lower GI bleeding/hematochezia Colonoscopy * Isolated 1 cm ulceration in the sigmoid colon. Rule out inflammatory bowel disease, rule out ischemic, rule out neoplastic. Biopsies obtained * Otherwise normal colonic mucosa. Random biopsies obtained right colon and left colon. * Normal terminal ileum. Biopsies obtained * Large internal hemorrhoids, likely source of hematochezia. CT enteroscopy negative History of hypothyroidism History of asthma History of depression Plan: Continue present regimen If patient is discharged she should continue mesalamine for 2-3 months and then discontinue Review pathology as soon as available Tolerating diet without difficulty If diet well-tolerated she may be followed as an outpatient Subjective: Course reviewed with nursing staff Patient interviewed and examined All labs, imaging and other results reviewed The patient reports no GI symptoms No further GI bleeding CT enterography normal, pathology pending Tolerating medications well Exam: General: well developed, well nourished, alert and oriented x3 , in no acute distress Skin: No lesions, no stigmata chronic liver disease, no evidence of bleeding diathesis Lymphatic: No palpable lymphadenopathy HEENT: No lesions Cardiovascular: Heart: Regular rate and rhythm, no murmurs, gallops or rubs. Peripheral pulses present within normal limits, no cyanosis, clubbing or edemas. No pulsatile abdominal mass Respiratory: Lungs clear to auscultation and percussion, no wheezing, no rubs Gastrointestinal and Liver: Abdomen: Soft, non tender, non-distended, no hernias , no masses, no organomegaly, no ascites, no guarding, no rebound tenderness, normoactive bowel sounds. Extremities: No cyanosis, clubbing, or edema. Diagnostic Studies: Available data and images were reviewed personally. See reports. Significant results and findings are addressed here or in the assessment and plan. Problems: Exam/Review of Systems Vital Signs Vitals Vital Signs Date Time Temp Pulse Resp B/P Pulse Ox O2 Delivery O2 Flow Rate FiO2 05/01/17 13:58 97.8 67 18 141/63 96 04/29/17 18:52 High Flow 04/28/17 16:25 0 Intake and Output 04/30/17 04/30/17 05/01/17 15:00 23:00 07:00 Intake Total 1020 ml 440 ml Balance 1020 ml 440 ml Results Result Diagram: 05/01/1714 05/01/1714 Results 24 hrs Laboratory Tests Test 05/01/17 05:14 White Blood Count 8.0 Red Blood Count 4.44 Hemoglobin 12.9 Hematocrit 40.6 Mean Corpuscular Volume 91.4 Mean Corpuscular Hemoglobin 29.1 Mean Corpuscular Hemoglobin Concent 31.8 L Red Cell Distribution Width 13.3 Platelet Count 297 Mean Platelet Volume 9.7 Neutrophils % 54.0 Lymphocytes % 31.6 Monocytes % 9.6 Eosinophils % 3.5 Basophils % 0.8 Nucleated Red Blood Cells % 0.0 Neutrophils # 4.3 Lymphocytes # 2.5 Monocytes # 0.8 Eosinophils # 0.3 Basophils # 0.1 Nucleated Red Blood Cells # 0.0 Prothrombin Time 13.9 Prothrombin Time Ratio 1.1 INR International Normalized Ratio 1.07 Activated Partial Thromboplast Time 29.0 Sodium Level 139 Potassium Level 4.5 Chloride Level 109 Carbon Dioxide Level 24 Anion Gap 11 Blood Urea Nitrogen 19 Creatinine 1.10 H Glucose Level 90 Calcium Level 9.5 Phosphorus Level 4.9 Magnesium Level 1.9 Medications Medications Current Medications Ondansetron HCl (Zofran Inj) 4 mg Q6H PRN IV NAUSEA AND/OR VOMITING; Start 04/28/17 at 20:30 Acetaminophen (Tylenol Tab) 650 mg Q6H PRN PO PAIN LEVEL 1-3 OR FEVER; Start 04/28/17 at 20:30 Morphine Sulfate (morphine) 2 mg Q4H PRN IV PAIN LEVEL 7-10; Start 04/28/17 at 20:30 Pantoprazole (Protonix Iv) 40 mg DAILY@06 IV Last administered on 05/01/17 05: 56; Admin Dose 40 MG; Start 04/29/17 at 06:00 Atenolol (Tenormin) 25 mg BID PO Last administered on 05/01/17 08:56; Admin Dose 25 MG; Start 04/28/17 at 21:00 Baclofen (Lioresal) 10 mg BID PO Last administered on 05/01/17 08:55; Admin Dose 10 MG; Start 04/28/17 at 21:00 Fluoxetine HCl (Prozac) 10 mg DAILY PO Last administered on 05/01/17 08:55; Admin Dose 10 MG; Start 04/29/17 at 09:00 Loratadine (Claritin) 10 mg DAILY PO Last administered on 05/01/17 08:55; Admin Dose 10 MG; Start 04/29/17 at 09:00 Montelukast Sodium (Singulair) 10 mg QHS PO Last administered on 04/30/17 21: 18; Admin Dose 10 MG; Start 04/28/17 at 21:00 Tramadol HCl (Ultram) 50 mg Q6H PRN PO PAIN; Start 04/28/17 at 20:30 Atorvastatin Calcium (Lipitor) 10 mg DAILY@21 PO Last administered on 21:18; Admin Dose 10 MG; Start 04/28/17 at 21:00 Mesalamine (Delzicol Dr) 800 mg TID PO Last administered on 05/01/17 13:34; Admin Dose 800 MG; Start 04/29/17 at 21:00 Gabapentin (Neurontin) 300 mg TID PO ; Start 05/01/17 at 21:00 KIMO SIMS MD May 01, 2017 14:08
--- NOTE | 2017-05-01 14:28 | PDOCDIS ---
Discharge Instructions DIAGNOSIS Discharge Diagnosis Hematochezia. CONDITION Patient Condition: Stable HOME CARE INSTRUCTIONS: Diet Instructions: RegularSpecial Diet: REGULAR FOLLOW UP/APPOINTMENTS Follow-up Plan Ann-Marie Gutierrez MD Specialty Gastroenterology Office Address [id number] [place] [address] Office OTHER ORDERS: Other Orders: 1. Take a regular diet as tolerated. 2. Take medications as per prescription. 3. Follow-up with your primary care physician in 2 weeks. 4. Follow-up with Dr. Gutierrez in 2 months. 5. Resume activities as tolerated. SENDY ALVARADO NP May 01, 2017 14:28
[2017-05-01] MEDS ORDERED: GABA300C16 PO (14:31)
--- NOTE | 2017-05-01 16:14 | PN ---
Date/Time of Note Date/Time of Note DATE: 05/01/17 TIME: 16:11 Assessment/Plan VTE Prophylaxis VTE Prophylaxis Intervention: SCD's Lines/Catheters IV [facility] Type (from [facility]): Peripheral IV Urinary Cath still in place: No Assessment/Plan Chief Complaint/Hosp Course 1. Hematochezia. Status post colonoscopy that showed isolated a 1 cm ulceration in the sigmoid colon. Status post CT enterography to rule out small bowel lesions that may suggest Crohn's disease. CT enterography negative. IBD serology has been sent. The patient was started on mesalamine. 2. Hypothyroidism. Continue Synthroid. 3. Depression. Continue SSRI. 4. Essential hypertension. Continue antihypertensives. 5. Neuropathy. Continue gabapentin. 6. Asthma. No acute exacerbation. Continue leukotriene inhibitors. 7. DVT prophylaxis. Bilateral sequential compression devices. 8. Plan. Continue current management. Decrease the dose of gabapentin provided the patient's complaint of dizziness. The patient was cleared by gastroenterology to be discharged home. The patient needs preauthorization for mesalamine. Case management order has been put in. Prescription has been left in the chart. Case discussed with Dr. Reed. Problems: Subjective 24 Hr Interval Summary Free Text/Dictation Patient was complaining of some dizziness. Denied any hematochezia. Exam/Review of Systems Vital Signs Vitals Vital Signs Date Time Temp Pulse Resp B/P Pulse Ox O2 Delivery O2 Flow Rate FiO2 05/01/17 13:58 97.8 67 18 141/63 96 04/29/17 18:52 High Flow 04/28/17 16:25 0 Intake and Output 04/30/17 04/30/17 05/01/17 15:00 23:00 07:00 Intake Total 1020 ml 440 ml Balance 1020 ml 440 ml Exam General: Adequately build 77 year-old female lying in bed in no apparent distress. HEENT: Normocephalic, atraumatic. Eyes: Anicteric sclerae, conjunctivae clear. ENT: Nasal septum midline, oral mucosa moist. Neck supple, no JVD noticed. Respiratory: Bilaterally clear breath sounds. No use of accessory muscles of respiration. No adventitious breath sounds. Cardiovascular: S1, S2 heard. No murmurs or gallops. Abdomen: Soft, nontender, and nondistended. Bowel sounds positive in all 4 quadrants. Genitourinary: Deferred. Extremities: No cyanosis, no clubbing, no edema. Peripheral pulses palpable. Neurologic: Cranial nerves II through XII grossly intact. The patient is awake, alert, and oriented. Skin: Normal skin turgor. No skin rashes. Results Result Diagram: 05/01/1714 05/01/17 0514 Results 24 hrs Laboratory Tests Test 05/01/17 05:14 White Blood Count 8.0 Red Blood Count 4.44 Hemoglobin 12.9 Hematocrit 40.6 Mean Corpuscular Volume 91.4 Mean Corpuscular Hemoglobin 29.1 Mean Corpuscular Hemoglobin Concent 31.8 L Red Cell Distribution Width 13.3 Platelet Count 297 Mean Platelet Volume 9.7 Neutrophils % 54.0 Lymphocytes % 31.6 Monocytes % 9.6 Eosinophils % 3.5 Basophils % 0.8 Nucleated Red Blood Cells % 0.0 Neutrophils # 4.3 Lymphocytes # 2.5 Monocytes # 0.8 Eosinophils # 0.3 Basophils # 0.1 Nucleated Red Blood Cells # 0.0 Prothrombin Time 13.9 Prothrombin Time Ratio 1.1 INR International Normalized Ratio 1.07 Activated Partial Thromboplast Time 29.0 Sodium Level 139 Potassium Level 4.5 Chloride Level 109 Carbon Dioxide Level 24 Anion Gap 11 Blood Urea Nitrogen 19 Creatinine 1.10 H Glucose Level 90 Calcium Level 9.5 Phosphorus Level 4.9 Magnesium Level 1.9 Medications Medications Current Medications Ondansetron HCl (Zofran Inj) 4 mg Q6H PRN IV NAUSEA AND/OR VOMITING; Start 04/28/17 at 20:30 Acetaminophen (Tylenol Tab) 650 mg Q6H PRN PO PAIN LEVEL 1-3 OR FEVER; Start 04/28/17 at 20:30 Morphine Sulfate (morphine) 2 mg Q4H PRN IV PAIN LEVEL 7-10; Start 04/28/17 at 20:30 Pantoprazole (Protonix Iv) 40 mg DAILY@06 IV Last administered on 05/01/17 05: 56; Admin Dose 40 MG; Start 04/29/17 at 06:00 Atenolol (Tenormin) 25 mg BID PO Last administered on 05/01/17 08:56; Admin Dose 25 MG; Start 04/28/17 at 21:00 Baclofen (Lioresal) 10 mg BID PO Last administered on 05/01/17 08:55; Admin Dose 10 MG; Start 04/28/17 at 21:00 Fluoxetine HCl (Prozac) 10 mg DAILY PO Last administered on 05/01/17 08:55; Admin Dose 10 MG; Start 04/29/17 at 09:00 Loratadine (Claritin) 10 mg DAILY PO Last administered on 05/01/17 08:55; Admin Dose 10 MG; Start 04/29/17 at 09:00 Montelukast Sodium (Singulair) 10 mg QHS PO Last administered on 04/30/17 21: 18; Admin Dose 10 MG; Start 04/28/17 at 21:00 Tramadol HCl (Ultram) 50 mg Q6H PRN PO PAIN; Start 04/28/17 at 20:30 Atorvastatin Calcium (Lipitor) 10 mg DAILY@21 PO Last administered on 21:18; Admin Dose 10 MG; Start 04/28/17 at 21:00 Mesalamine (Delzicol Dr) 800 mg TID PO Last administered on 05/01/17 13:34; Admin Dose 800 MG; Start 04/29/17 at 21:00 Gabapentin (Neurontin) 300 mg TID PO ; Start 05/01/17 at 21:00 SENDY ALVARADO NP May 01, 2017 16:14
[2017-05-01 19:43] VITALS: BP 109/56; RESP 18
[2017-05-01] MEDS: MONTELUKAST 10 MG TAB PO SCH (20:45)
[2017-05-01] MEDS: ATORVASTATIN 10 MG TAB PO SCH (20:46)
[2017-05-02 02:09] VITALS: BP 119/61; RESP 18
[2017-05-02] MEDS: LEVOTHYROXINE 75 MCG TAB PO SCH (06:02)
[2017-05-02] MEDS: PANTOPRAZOLE (EC) 40 MG TAB PO SCH (06:02)
[2017-05-02 06:08] LABS: INR 1.05; PROTIME 13.7 Sec (12.2-14.2); PT RATIO 1.1
[2017-05-02 06:09] LABS: PARTIAL THROMBOPLASTIN TIME 32.3 Sec (25.0-35.0)
[2017-05-02 07:26] VITALS: BP 121/57; RESP 18
[2017-05-02] MEDS: BACLOFEN 10 MG TAB PO SCH ×2 (08:20→20:24)
[2017-05-02] MEDS: GABAPENTIN 300 MG CAP PO SCH ×3 (08:20→20:23)
[2017-05-02] MEDS: MESALAMINE (EC) 400 MG CAP PO SCH ×3 (08:20→20:24)
[2017-05-02] MEDS: ATENOLOL 25 MG TAB PO SCH ×2 (08:21→20:24)
[2017-05-02] MEDS: LORATADINE 10 MG TAB PO SCH (08:22)
[2017-05-02] MEDS: FLUOXETINE 10 MG CAP PO SCH (08:22)
[2017-05-02] MEDS ORDERED: ASA400 PO (11:24)
--- NOTE | 2017-05-02 12:13 | DS ---
Date/Time of Note Date/Time of Note DATE: 05/02/17 TIME: 12:09 Discharge Summary Admission/Discharge Info Admit Date/Time Apr 28, 2017 at 17:46 Discharge Date/Time Discharge Diagnosis 1. Hematochezia. suspect secondary to Crohn's disease 2. Hypothyroidism. 3. Depression. 4. Essential hypertension. 5. Neuropathy. 6. Asthma. Patient Condition: Stable Consults 1. Dr. Ann-Marie Gutierrez Hospital Course This is a 77-year-old female with history of asthma, hypertension, who came to [facility] due to reports of rectal bleeding. According to the report patient has been having bleeding with flatus with her bowel movements. She denies any abdominal pain. Patient [facility] for further evaluation. Patient was suspect for GI bleed and asked that she was seen by manager apple. Patient did undergo colonoscopy that did show isolated 1 cm ulceration in the sigmoid colon. Additionally CT enterography was suggestive of Crohn's disease. Patient was placed on mesalamine per manager apple recommendations. We did monitor H&H and I did remain stable. During her course of stay she did improve. Patient was otherwise optimized medically. She was resumed on Synthroid for hypothyroidism and SSRI for depression. She is also continued antihypertensives for her hypertension. She did have a history of asthma but no active bronchospasm is noted. We did provide with bronchodilators as needed. She is also resumed on Neurontin for her neuropathy. The plan of care was discussed with the patient and patient did verbalize understanding. On the day of discharge patient was in stable condition Discussed plan of care with Dr. Molina [facility] Active Scripts Mesalamine (Delzicol) 400 Mg Cap.tabBrenda, 800 MG PO TID for 30 Days, #90 Prov:PASQUALE POWELL 05/02/17 Gabapentin* (Gabapentin*) 300 Mg Capsule, 300 MG PO TID, #90 CAP Prov:SENDY ALVARADO NP 05/01/17 Reported Medications Fluoxetine Hcl* (Fluoxetine Hcl*) 10 Mg Capsule, 10 MG PO DAILY, CAP [id number] FOR 5 DAYS-DAILY AND THEN 20MG DAILY 04/28/17 Loratadine* (Loratadine*) 10 Mg Tablet, 10 MG PO DAILY, #30 TAB 04/28/17 Baclofen* (Baclofen*) 10 Mg Tablet, 10 MG PO BID, TAB 04/28/17 Simvastatin* (Zocor*) 20 Mg Tablet, 20 MG PO QHS, #30 TAB 10/21/16 Montelukast Sodium* (Montelukast Sodium*) 10 Mg Tablet, 10 MG PO QHS, #30 TAB 10/21/16 Levothyroxine Sodium* (Levothyroxine Sodium*) 75 Mcg Tablet, 75 MCG PO BEFORE BREAKFAST, #30 TAB 10/21/16 Atenolol* (Atenolol*) 25 Mg Tablet, 25 MG PO BID, #60 TAB 10/21/16 Discontinued Reported Medications Gabapentin* (Gabapentin*) 600 Mg Tablet, 600 MG PO TID, #90 TAB 04/28/17 Tramadol Hcl* (Ultram*) 50 Mg Tablet, 50 MG PO Q6H Y for PAIN, TAB 04/28/17 Diclofenac Potassium (Diclofenac Potassium) 50 Mg Tablet, 50 MG PO BID, TAB 04/28/17 Ciprofloxacin Hcl* (Ciprofloxacin Hcl*) 500 Mg Tablet, 500 MG PO BID, #14 TAB 04/28/17 Aspirin* (Aspirin* EC) 81 Mg Tablet.dr, 81 MG PO DAILY, TAB 10/21/16 Hyoscyamine Sulfate* (Hyoscyamine Sulfate*) 0.125 Mg Tab.subl, 0.125 MG SL DAILY , TAB 10/21/16 Omeprazole* (Omeprazole*) 20 Mg Capsule.dr, 20 MG PO DAILY, #30 CAP 10/21/16 Omeprazole* (Omeprazole*) 20 Mg Capsule.dr, 20 MG PO DAILY, #30 CAP 10/21/16 Salmeterol Xinaf/Fluticasone* (Advair*) 250-50 Diskus Inhaler, 1 INH INHALATION BID, #1 INHALER 10/21/16 Fluticasone Propionate* (Fluticasone Propionate* Nasal) 50 Mcg/Eden - 16 Gm Eden.susp, 1 SPRAY NASAL DAILY, #1 BOTTLE TO EACH NOSTRIL 10/21/16 Fluoxetine Hcl* (Fluoxetine Hcl*) 20 Mg Capsule, 20 MG PO DAILY 10/13/13 Discontinued Scripts Albuterol Sulfate* (Albuterol Sulfate* HFA) 8.5 Gm Hfa.aer.ad, 1-2 PUFF INH Q4 Y for SHORTNESS OF BREATH, #1 EA Prov:SIENA ZAMORA MD 01/19/15 Follow-up Plan Ann-Marie Gutierrez MD Specialty Gastroenterology Office Address [address] [place] [address] Office Primary Care Provider Soham Millard MD Time spent on discharge: > 30 minutes Pending Labs Laboratory Tests Test 05/02/17 05:00 Prothrombin Time 13.7Sec (12.2-14.2) Prothrombin Time Ratio 1.1 INR International Normalized Ratio 1.05 Activated Partial Thromboplast Time 32.3Sec (25.0-35.0) PASQUALE POWELL May 02, 2017 12:13
[2017-05-02 14:21] VITALS: BP 103/55; RESP 18
[2017-05-02 19:45] VITALS: BP 114/60; RESP 18
[2017-05-02] MEDS: ATORVASTATIN 10 MG TAB PO SCH (20:24)
[2017-05-02] MEDS: MONTELUKAST 10 MG TAB PO SCH (20:24)
[2017-05-03 02:02] VITALS: BP 115/58; RESP 18
[2017-05-03] MEDS: LEVOTHYROXINE 75 MCG TAB PO SCH (06:05)
[2017-05-03] MEDS: PANTOPRAZOLE (EC) 40 MG TAB PO SCH (06:05)
[2017-05-03 06:47] LABS: INR 1.13; PARTIAL THROMBOPLASTIN TIME 38.5 Sec (25.0-35.0); PROTIME 14.5 Sec (12.2-14.2); PT RATIO 1.1
[2017-05-03 07:34] VITALS: BP 138/63; RESP 18
[2017-05-03] MEDS: LORATADINE 10 MG TAB PO SCH (08:47)
[2017-05-03] MEDS: GABAPENTIN 300 MG CAP PO SCH ×2 (08:47→13:13)
[2017-05-03] MEDS: BACLOFEN 10 MG TAB PO SCH (08:48)
[2017-05-03] MEDS: ATENOLOL 25 MG TAB PO SCH (08:48)
[2017-05-03] MEDS: MESALAMINE (EC) 400 MG CAP PO SCH ×2 (08:48→13:14)
[2017-05-03] MEDS: FLUOXETINE 10 MG CAP PO SCH (08:48)
[2017-05-03] MEDS ORDERED: INFLUENZA VIRUS VACCINE 0.5 ML (DISPENSING) IM* ONE (09:00)
[2017-05-03 11:25] LABS: BASOPHIL # 0.1 10^3/ul (0.0-0.1); BASOPHILS % 0.9 % (0.0-2.0); EOSINOPHILS # 0.3 10^3/ul (0.0-0.5); EOSINOPHILS % 3.7 % (0.0-7.0); HEMATOCRIT 39.5 % (37.0-47.0); HEMOGLOBIN 12.4 g/dl (12.0-16.0); LYMPHOCYTES # 2.3 10^3/ul (0.8-2.9); LYMPHOCYTES % 30.5 % (15.0-51.0); MEAN CORPUSCULAR HEMOGLOBIN 29.1 pg (29.0-33.0); MEAN CORPUSCULAR HGB CONC 31.4 g/dl (32.0-37.0); MEAN CORPUSCULAR VOLUME 92.7 fl (82.0-101.0); MEAN PLATELET VOLUME 10.4 fl (7.4-10.4); MONOCYTE # 0.8 10^3/ul (0.3-0.9); MONOCYTES % 10.5 % (0.0-11.0); NEUTROPHILS % 53.9 % (39.0-77.0); PLATELET COUNT 267 10^3/UL (140-415); RED BLOOD COUNT 4.26 10^6/ul (4.20-5.40); RED CELL DISTRIBUTION WIDTH 13.6 % (11.5-14.5); WHITE BLOOD COUNT 7.5 10^3/ul (4.8-10.8)
[2017-05-03 11:26] LABS: MYELOPEROXIDASE ANTIBODY <1.0 AI; PROTEINASE-3 ANTIBODY <1.0 AI
--- NOTE | 2017-05-03 11:26 | DS ---
Date/Time of Note Date/Time of Note DATE: 05/03/17 TIME: 11:25 Discharge Summary Admission/Discharge Info Admit Date/Time Apr 28, 2017 at 17:46 Discharge Date/Time Discharge Diagnosis 1. Hematochezia. suspect secondary to Crohn's disease 2. Hypothyroidism. 3. Depression. 4. Essential hypertension. 5. Neuropathy. 6. Asthma. Patient Condition: Stable Hospital Course This is a 77-year-old female with history of asthma, hypertension, who came to [facility] due to reports of rectal bleeding. According to the report patient has been having bleeding with flatus with her bowel movements. She denies any abdominal pain. Patient [facility] for further evaluation. Patient was suspect for GI bleed and asked that she was seen by motor hotel manager. Patient did undergo colonoscopy that did show isolated 1 cm ulceration in the sigmoid colon. Additionally CT enterography was suggestive of Crohn's disease. Patient was placed on mesalamine per motor hotel manager recommendations. We did monitor H&H and I did remain stable. During her course of stay she did improve. Patient was otherwise optimized medically. She was resumed on Synthroid for hypothyroidism and SSRI for depression. She is also continued antihypertensives for her hypertension. She did have a history of asthma but no active bronchospasm is noted. We did provide with bronchodilators as needed. She is also resumed on Neurontin for her neuropathy. Patient was initially planned for discharge on May 02, 2017 however due to insurance issue and authorization of medication patient was held in house. Once authorization was obtained we did plan for discharge of the patient. Patient was officially discharged on May 03, 2017. The plan of care was discussed with the patient and patient did verbalize understanding. On the day of discharge patient was in stable condition Discussed plan of care with Dr. Molina [facility] Active Scripts Mesalamine (Delzicol) 400 Mg Cap.drtab., 800 MG PO TID for 30 Days, #90 Prov:PASQUALE POWELL 05/02/17 Gabapentin* (Gabapentin*) 300 Mg Capsule, 300 MG PO TID, #90 CAP Prov:SENDY ALVARADO NP 05/01/17 Reported Medications Fluoxetine Hcl* (Fluoxetine Hcl*) 10 Mg Capsule, 10 MG PO DAILY, CAP [id number] FOR 5 DAYS-DAILY AND THEN 20MG DAILY 04/28/17 Loratadine* (Loratadine*) 10 Mg Tablet, 10 MG PO DAILY, #30 TAB 04/28/17 Baclofen* (Baclofen*) 10 Mg Tablet, 10 MG PO BID, TAB 04/28/17 Simvastatin* (Zocor*) 20 Mg Tablet, 20 MG PO QHS, #30 TAB 10/21/16 Montelukast Sodium* (Montelukast Sodium*) 10 Mg Tablet, 10 MG PO QHS, #30 TAB 10/21/16 Levothyroxine Sodium* (Levothyroxine Sodium*) 75 Mcg Tablet, 75 MCG PO BEFORE BREAKFAST, #30 TAB 10/21/16 Atenolol* (Atenolol*) 25 Mg Tablet, 25 MG PO BID, #60 TAB 10/21/16 Discontinued Reported Medications Gabapentin* (Gabapentin*) 600 Mg Tablet, 600 MG PO TID, #90 TAB 04/28/17 Tramadol Hcl* (Ultram*) 50 Mg Tablet, 50 MG PO Q6H Y for PAIN, TAB 04/28/17 Diclofenac Potassium (Diclofenac Potassium) 50 Mg Tablet, 50 MG PO BID, TAB 04/28/17 Ciprofloxacin Hcl* (Ciprofloxacin Hcl*) 500 Mg Tablet, 500 MG PO BID, #14 TAB 04/28/17 Aspirin* (Aspirin* EC) 81 Mg Tablet.dr, 81 MG PO DAILY, TAB 10/21/16 Hyoscyamine Sulfate* (Hyoscyamine Sulfate*) 0.125 Mg Tab.subl, 0.125 MG SL DAILY , TAB 10/21/16 Omeprazole* (Omeprazole*) 20 Mg Capsule.dr, 20 MG PO DAILY, #30 CAP 10/21/16 Omeprazole* (Omeprazole*) 20 Mg Capsule.dr, 20 MG PO DAILY, #30 CAP 10/21/16 Salmeterol Xinaf/Fluticasone* (Advair*) 250-50 Diskus Inhaler, 1 INH INHALATION BID, #1 INHALER 10/21/16 Fluticasone Propionate* (Fluticasone Propionate* Nasal) 50 Mcg/[place] - 16 Gm [place].susp, 1 SPRAY NASAL DAILY, #1 BOTTLE TO EACH NOSTRIL 10/21/16 Fluoxetine Hcl* (Fluoxetine Hcl*) 20 Mg Capsule, 20 MG PO DAILY 10/13/13 Discontinued Scripts Albuterol Sulfate* (Albuterol Sulfate* HFA) 8.5 Gm Hfa.aer.ad, 1-2 PUFF INH Q4 Y for SHORTNESS OF BREATH, #1 EA Prov:SIENA ZAMORA MD 01/19/15 Follow-up Plan Ann-Marie Gutierrez MD Specialty Gastroenterology Office Address [id number] [facility] [place] [address] Office Primary Care Provider Soham Millard MD Pending Labs Laboratory Tests Test 05/03/17 05:44 05/03/17 05:45 White Blood Count 7.510^3/ul (4.8-10.8) Red Blood Count 4.2610^6/ul (4.20-5.40) Hemoglobin 12.4g/dl (12.0-16.0) Hematocrit 39.5% (37.0-47.0) Mean Corpuscular Volume 92.7fl (82.0-101.0) Mean Corpuscular Hemoglobin 29.1pg (29.0-33.0) Mean Corpuscular Hemoglobin Concent 31.4g/dl (32.0-37.0) Red Cell Distribution Width 13.6% (11.5-14.5) Platelet Count 13995^3/UL (140-415) Mean Platelet Volume 10.4fl (7.4-10.4) Neutrophils % 53.9% (39.0-77.0) Lymphocytes % 30.5% (15.0-51.0) Monocytes % 10.5% (0.0-11.0) Eosinophils % 3.7% (0.0-7.0) Basophils % 0.9% (0.0-2.0) Nucleated Red Blood Cells % 0.0/100WBC (0.0-0.0) Neutrophils # 4.010^3/ul (1.6-7.5) Lymphocytes # 2.310^3/ul (0.8-2.9) Monocytes # 0.810^3/ul (0.3-0.9) Eosinophils # 0.310^3/ul (0.0-0.5) Basophils # 0.110^3/ul (0.0-0.1) Nucleated Red Blood Cells # 0.010^3/ul (0.0-0.0) Prothrombin Time 14.5Sec (12.2-14.2) Prothrombin Time Ratio 1.1 INR International Normalized Ratio 1.13 Activated Partial Thromboplast Time 38.5Sec (25.0-35.0) PASQUALE POWELL May 03, 2017 11:26
[2017-05-03 11:29] LABS: CALCIUM 9.3 mg/dl (8.4-10.2); CREATININE 0.9 mg/dl (0.44-1.00); POTASSIUM 4.5 mmol/L (3.5-5.1)
[2017-05-03 14:00] VITALS: BP 97/55; RESP 16
== END 2017-05-03 18:10 | disposition home or self-care (01) | DRG 386 ==
LOC: E/R 15:31 → MS2 17:46
PROVIDERS: ADMIT Internal Medicine; ATTEND Internal Medicine
PROC: 0DBF8ZX Excision of Right Large Intestine, Via Natural or Artificial Opening Endoscopic, Diagnostic (ICD-10-PCS; 2017-04-29)
PROC: 0DBG8ZX Excision of Left Large Intestine, Via Natural or Artificial Opening Endoscopic, Diagnostic (ICD-10-PCS; 2017-04-29)
PROC: 0DBB8ZX Excision of Ileum, Via Natural or Artificial Opening Endoscopic, Diagnostic (ICD-10-PCS; 2017-04-29)
PROC: 0DH63UZ Insertion of Feeding Device into Stomach, Percutaneous Approach (ICD-10-PCS; 2017-04-29)
PROC: 0DBM8ZX Excision of Descending Colon, Via Natural or Artificial Opening Endoscopic, Diagnostic (ICD-10-PCS; principal; 2017-04-29 20:00)
DX: K50.911 Crohn's disease, unspecified, with rectal bleeding (principal); K63.3 Ulcer of intestine; G62.9 Polyneuropathy, unspecified; J44.9 Chronic obstructive pulmonary disease, unspecified; I10 Essential (primary) hypertension; K64.8 Other hemorrhoids; E03.9 Hypothyroidism, unspecified; F32.9 Major depressive disorder, single episode, unspecified; J45.909 Unspecified asthma, uncomplicated; E78.5 Hyperlipidemia, unspecified; Z87.891 Personal history of nicotine dependence; R62.7 Adult failure to thrive; K20.9 Esophagitis, unspecified
CPT/HCPCS: 36415; 74177; 80048; 80053; 80061; 83735; 84100; 84439; 84443; 84484; 85014; 85018; 85025; 85049; 85610; 85730; 86021; 86850; 86900; 86901; 88305; 90686; 93005; 96374; C9113; J1610; J7030; Q9967

== ENCOUNTER 2017-08-26 16:49 | Emergency (ER) | END 2017-08-26 22:12 | disposition home or self-care (01) ==

== ENCOUNTER 2017-09-14 08:02 | Emergency (ER) | END 2017-09-14 10:15 | disposition home or self-care (01) ==

== ENCOUNTER 2017-09-28 00:06 | Observation (INO) | END 2017-09-28 17:45 | disposition home or self-care (01) ==

== ENCOUNTER 2018-01-12 06:48 | Emergency (ER) | END 2018-01-12 08:58 | disposition home or self-care (01) ==

== ENCOUNTER 2018-06-11 07:25 | Emergency (ER) | END 2018-06-11 13:01 | disposition home or self-care (01) ==

== ENCOUNTER 2018-10-28 08:42 | Emergency (ER) | payer OTHER, MEDICAID ==
[~2018-10-28] VITALS: Wt 78.0 kg
[~2018-10-28 08:42] MED LIST changes: -ADV25050 INHALATION; +ADV50050 INHALATION; -ALBU8.5H5 INH; +ALBU8.5H8 INH; -ASPI-664 PO; +ASPI-903 PO; +ATOR20TA38 PO; +AZIT250T PO; +DULO30CA47 PO; -FLUT16SP17 NASAL; +GABA-526 PO; -HYOS0.1297 SL; +LEVO50TA7 PO; -LEVO75TA5 PO; +LORA0.5T PO; +LORA10TA3 PO; +PRED20TA PO; -SIMV20TA PO; +TIOT18CA INHALATION
--- NOTE | 2018-10-28 09:16 | ERD ---
ER Documentation Chief Complaint Chief Complaint flu x 3 days, sore throat, pain on chest when coughing HPI 78-year-old female, with history of asthma/COPD, hypothyroidism, presents the emergency department, complaining of 3 days with worsening of upper respiratory symptoms including cough, sharp chest pain, runny nose, chest congestion and sore throat. The patient denies palpitations, dizziness, no shortness of breath, no rashes, no abdominal pain. ROS All systems reviewed and are negative except as per history of present illness. Medications Home Meds Active Scripts Ranitidine Hcl* (Zantac*) 150 Mg Tablet, 150 MG PO BID PRN for EPIGASTRIC PAIN, #10 TAB Prov:ERIC WHATLEY MD 10/28/18 Prednisone* (Prednisone*) 20 Mg Tab, 40 MG PO DAILY for 4 Days, TAB Prov:ERIC WHATLEY MD 10/28/18 Albuterol Sulfate* (Proair HFA*) 8.5 Gm Hfa.aer.ad, 2 PUFF INH Q4, #1 INHALER Prov:COLE ARNOLD DO 06/11/18 Prednisone* (Prednisone*) 20 Mg Tab, 60 MG PO DAILY for 5 Days, TAB Prov:COLE ARNOLD DO 06/11/18 Azithromycin* (Zithromax*) 250 Mg Tablet, 250 MG PO .SandraPACK DIRECTED, #6 TAB TAKE 500 MG (2 TABS) THE FIRST DAY THEN 250 MG (1 TAB) DAYS 2-5 Prov:COLE ARNOLD DO 06/11/18 Reported Medications Omeprazole* (Omeprazole*) 20 Mg Capsule.dr, 20 MG PO DAILY, #30 CAP 06/11/18 Duloxetine Hcl* (Duloxetine Hcl*) 30 Mg Capsule.dr, 30 MG PO BID, #30 CAP 06/11/18 Tiotropium Vadito* (Spiriva*) 18 Mcg Cap.w.dev, 1 CAP INHALATION DAILY, #30 CAP 06/11/18 Salmeterol Xinaf-Fluticasone* (Advair*) 500/50 Diskus Inhaler, 1 INH INHALATION BID, #1 INHALER 06/11/18 Lorazepam* (Lorazepam*) 0.5 Mg Tablet, 0.5 MG PO Q12H PRN for ANXIETY, TAB 09/27/17 Montelukast Sodium* (Montelukast Sodium*) 10 Mg Tablet, 10 MG PO QHS, #30 TAB 09/27/17 Loratadine* (Loratadine*) 10 Mg Tablet, 10 MG PO DAILY, #30 TAB 09/27/17 Levothyroxine Sodium* (Levothyroxine Sodium*) 50 Mcg Tablet, 50 MCG PO BEFORE BREAKFAST, #30 TAB 09/27/17 Gabapentin* (Gabapentin*) 600 Mg Tablet, 600 MG PO TID, #90 TAB 09/27/17 Fluoxetine Hcl* (Fluoxetine Hcl*) 20 Mg Capsule, 20 MG PO DAILY, CAP 09/27/17 Atorvastatin Calcium* (Atorvastatin Calcium*) 20 Mg Tablet, 20 MG PO QHS, #30 TAB 09/27/17 Atenolol* (Atenolol*) 25 Mg Tablet, 25 MG PO DAILY, #30 TAB 09/27/17 Albuterol Sulfate* (Proair HFA*) 8.5 Gm Hfa.aer.ad, 2 PUFF INH Q6H PRN for WHEEZING AND SOB, #1 INHALER 09/27/17 Aspirin* (Aspirin* Chew) 81 Mg Tab.chew, 81 MG PO DAILY, TAB.CHEW 09/27/17 Allergies Allergies: Coded Allergies: cephalexin (Verified Allergy, Unknown, RASH, 06/11/18) PMhx/Soc History of Surgery: Yes (hernia repair) Anesthesia Reaction: No Hx Neurological Disorder: No Hx Respiratory Disorders: Yes (asthma) Hx Cardiac Disorders: Yes (htn,hypercholesteromia) Hx Psychiatric Problems: Yes (depression) Hx Miscellaneous Medical Probl: Yes (hypothyroidism,internal hemmorhoids) Hx Alcohol Use: No Hx Substance Use: No Hx Tobacco Use: No Physical Exam Vitals Vital Signs Date Temp Pulse Resp B/P (MAP) Pulse Ox O2 O2 Flow FiO2 Time Delivery Rate 10/28/18 98.6 100 18 130/60 94 Room Air 11:49 (83) 10/28/18 97 18 99 21 10:47 10/28/18 99.7 99 18 111/50 99 08:45 (70) Physical Exam Const: No acute distress Head: Atraumatic Eyes: Normal Conjunctiva ENT: Normal External Ears, Nose and Mouth. Neck: Full range of motion. No meningismus. Resp: Clear to auscultation bilaterally Cardio: Regular rate and rhythm, no murmurs Abd: Soft, non tender, non distended. Normal bowel sounds Skin: No petechiae or rashes Back: No midline or flank tenderness Ext: No cyanosis, or edema Neur: Awake and alert Psych: Normal Mood and Affect Results 24 hrs Laboratory Tests Test 10/28/18 09:38 Troponin I < 0.012 ng/ml Current Medications Medications Dose Sig/Key Start Time Status Last (Trade) Ordered Route PRN Stop Time Admin Dose Reason Admin Aspirin 162 mg ONCE STAT 10/28/18 DC 10/28/18 (Aspirin) PO 09:32 10/28/18 09:37 09:34 Morphine 5 mg ONCE ONCE 10/28/18 DC 10/28/18 Sulfate PO 10:00 10/28/18 09:37 (morphine) 10:01 40 ml ONCE ONCE 10/28/18 DC 10/28/18 Miscellaneous PO 10:00 10/28/18 10:01 Medication 10:01 (Gi Cocktail (2)) Albuterol 5 mg ONCE STAT 10/28/18 DC 10/28/18 (Proventil HHN 10:23 10/28/18 10:47 0.083% (Neb)) 10:31 Ipratropium 0.5 mg ONCE ONCE 10/28/18 DC 10/28/18 Vadito HHN 10:30 10/28/18 10:46 (Atrovent 10:31 0.02% (Neb)) EKG #1 9:25 EKG read by me: Rate/Rhythm: Regular rate and rhythm at a rate of 92 Intervals: Normal No significant ST changes. No T wave inversion Impression: No evidence of acute ischemia or arrhythmia EKG #2 10:06 Rate/Rhythm: Regular rate and rhythm at a rate of 92 Intervals: Normal No significant ST changes. No T wave inversion Patient: CICI RAINEY : 1940 Age: 78 Sex: F MR #: [id number] DOS: 10/28/18919 Ordering MD: ERIC WHATLEY MD Location: [facility] Room/Bed: PROCEDURE: XR Chest. CLINICAL INDICATION: Shortness of breath TECHNIQUE: A single AP view of the chest was obtained. COMPARISON: DR LUNDBERG 06/11/2018; CHEST 09/27/2017; CHEST 09/14/2017; CHEST 11/20/2016; CR CHEST 08/09/2016; CR CHEST 03/24/2016; CR CHEST 09/30/2015; CR CHEST 01/19/2015 FINDINGS: Lung volumes are low with bibasilar linear opacities. No pleural effusion or pneumothorax is seen. The cardiomediastinal silhouette is within normal limits for size. Calcifications are seen within the aortic arch. The osseous structures are unremarkable. IMPRESSION: 1. Low lung volumes with mild bibasilar atelectasis versus scarring. No significant interval change. 2. Aortic atherosclerosis. Procedures/MDM At the time of discharge, vital signs stable, no respiratory distress. Differential diagnosis include but not limited to: Respiratory infection bacterial/viral/fungal. Asthma/COPD, pneumonitis, allergies, GERD. Less likely foreign body aspiration, cardiac related, aspiration pneumonia, malignancy. Physical examination and clinical presentation consistent most likely with uncontrolled intermittent asthma without evidence of severe bronchospasm. During the ED course the patient remained stable, received a nebulized treatment in the ED presenting overall improvement of the symptoms, no new complaints. Clinical impression discussed with the patient who agrees with management. The patient is stable to be treated outpatient and will be discharged home. Some side effects of prescribed medications (headache, rash, nausea, vomiting, diarrhea, drowsiness, habituation, bleeding, hypertension, interactions with other medications) were reviewed. The patient was instructed to follow up with the primary care provider in the next 48h. If symptoms persist, worsen or new symptoms develop, then patient should return to the ED immediately. Disclaimer: Inadvertent spelling and grammatical errors are likely due to EHR/dictation software use and do not reflect on the overall quality of patient care. Also, please note that the electronic time recorded on this note does not necessarily reflect the actual time of the patient encounter. Departure Diagnosis: Primary Impression: Cough Additional Impression: Intermittent asthma Condition: Stable Additional Instructions: Muchas albert por [facility] para domingo servicio. Esperamos que en domingo visita a la shanda de emergencia domingo problema medico haya sido solucionado y que se sienta mucho mejor. Para estar seguros que domingo mejoria sigue en proceso, le pedimos el favor de hacer alex sigifredo de seguimiento medico con domingo doctor primario en los proximos 2-4 rodriguez. Lleve con usted estos documentos y las medicinas recetadas. Si marylin sintomas empeoran, NO SE ESPERE, por favor regrese a shanda de emergencia INMEDIATAMENTE. En kevin que usted no tenga un mdico de atencin primaria: Llame al mdico o clnica comunitaria de referencia que aparece abajo dina las horas de consultorio para hacer alex sigifredo para que le vean. CLINICAS: [place] [id number] [phone] [facility] [phone] [facility] [phone] [place] [id number] [phone] [place] [id number] [phone] [facility]. [phone] ERIC CHANG MD Oct 28, 2018 09:16
[2018-10-28] MEDS ORDERED: ASPIRIN 81 MG TAB PO STA (09:32)
[2018-10-28] MEDS ORDERED: LIDOCAINE/MYLANTA 40 ML BTL PO ONE (10:00)
[2018-10-28] MEDS ORDERED: morphine LIQ (10 MG/5 ML) CUP PO ONE (10:00)
[2018-10-28] MEDS ORDERED: ALBUTEROL 0.083% (NEB) 2.5 MG/3 ML AMP HHN STA (10:23)
[2018-10-28] MEDS ORDERED: IPRATROPIUM (NEB) 0.5 MG/2.5 ML AMP HHN ONE (10:30)
[2018-10-28] MEDS ORDERED: PRED20TA PO (11:39)
[2018-10-28] MEDS ORDERED: RANI150T35 PO (11:39)
[2018-10-28 11:49] VITALS: BP 130/60; PULSE 100; RESP 18
== END 2018-10-28 12:00 | disposition home or self-care (01) ==
LOC: FTE 08:42
DX: J45.21 Mild intermittent asthma with (acute) exacerbation (principal); I10 Essential (primary) hypertension; E03.9 Hypothyroidism, unspecified; Z79.82 Long term (current) use of aspirin
CPT/HCPCS: 71046; 84484; 94664